=== PATIENT | female | born 1995 | race Caucasian/White ===

== ENCOUNTER 2020-08-01 20:18 | Emergency (ER) | payer OTHER ==
[~2020-08-01] VITALS: Ht 152.4 cm; Wt 61.4 kg
[~2020-08-01 20:18] MED LIST: CLAR1TAB2 PO; DEBR6.5S4 AU; DEPA1TAB3 PO; DEPA500T2 PO; FLAG500T PO; FLON0.054; GEOD40CA13 PO
[2020-08-01] MEDS ORDERED: DOXYCYCLINE HYCLATE 100MG TABLET PO ONE (23:00)
[2020-08-01] MEDS ORDERED: BOOSTRIX/ADACEL VACCINE (DIPHTH/PERTUSS/ACELL/TETANUS) 0.5ML SYR IM ONE (23:00)
[2020-08-01] MEDS ORDERED: DOXY100C37 PO (23:00)
[2020-08-01 23:17] VITALS: BP 142/93
== END 2020-08-01 23:20 | disposition home or self-care (01) ==
LOC: M ED 20:18
DX: S91.332A Puncture wound without foreign body, left foot, initial encounter (principal); W45.0XXA Nail entering through skin, initial encounter; Z88.0 Allergy status to penicillin; Z91.013 Allergy to seafood; Z88.8 Allergy status to other drugs, medicaments and biological substances; Y92.9 Unspecified place or not applicable; Y93.9 Activity, unspecified; Y99.9 Unspecified external cause status

== ENCOUNTER 2020-09-26 22:06 | Emergency (ER) | payer OTHER ==
[~2020-09-26] VITALS: Ht 152.4 cm; Wt 59.8 kg
[~2020-09-26 22:06] MED LIST changes: +DOXY100C37 PO
[2020-09-26 22:42] VITALS: BP 129/77
== END 2020-09-27 01:00 | disposition left against medical advice (07) ==
LOC: M ED 22:06
DX: Z53.21 Procedure and treatment not carried out due to patient leaving prior to being seen by health care provider (principal)

== ENCOUNTER 2020-11-10 07:27 | Emergency (ER) | payer OTHER ==
[~2020-11-10] VITALS: Ht 152.4 cm; Wt 62.3 kg
[~2020-11-10 07:27] MED LIST changes: -DOXY100C37 PO; +DOXY1CAP62 PO
[2020-11-10 08:18] LABS: HEMATOCRIT 40.6 % (36.0-47.0); HEMOGLOBIN 13.6 g/dl (12.0-15.5); MEAN CORPUSCULAR HEMOGLOBIN 32.5 pg (27.0-33.0); MEAN CORPUSCULAR HGB CONC 33.5 g/dl (32.0-36.5); MEAN CORPUSCULAR VOLUME 96.9 fl (80.0-96.0); PLATELET COUNT, AUTOMATED 263 10^3/uL (150-450); RED BLOOD COUNT 4.19 10^6/uL (4.00-5.40)
[2020-11-10 08:40] LABS: AMPHETAMINES LEVEL URINE NEGATIVE (NEGATIVE); BARBITURATES URINE NEGATIVE (NEGATIVE); BENZODIAZEPINES URINE NEGATIVE (NEGATIVE); CANNABINOIDS URINE NEGATIVE (NEGATIVE); COCAINE METABOLITE URINE NEGATIVE (NEGATIVE); METHADONE URINE NEGATIVE (NEGATIVE); OPIATES URINE NEGATIVE (NEGATIVE); PHENCYCLIDINE URINE NEGATIVE (NEGATIVE)
[2020-11-10 08:56] LABS: HCG, SERUM QUALITATIVE NEGATIVE (NEGATIVE)
[2020-11-10 09:09] LABS: ACETAMINOPHEN LEVEL < 2.0 UG/ML (10.0-30.0); ALBUMIN 4.1 GM/DL (3.2-5.2); ALT/SGPT 16 U/L (12-78); BILIRUBIN,DIRECT < 0.1 MG/DL (0.0-0.2); BILIRUBIN,TOTAL 0.2 MG/DL (0.2-1.0); BLOOD UREA NITROGEN 12 MG/DL (7-18); CARBON DIOXIDE LEVEL 21 MEQ/L (21-32); CHLORIDE LEVEL 112 MEQ/L (98-107); ETHYL ALCOHOL (ETHANOL) 0.088 % (0.000-0.010); GLOMERULAR FILTRATION RATE > 60.0 (>60); GLUCOSE, FASTING 100 MG/DL (70-100); POTASSIUM SERUM 3.7 MEQ/L (3.5-5.1); SALICYLATE LEVEL 2.7 MG/DL (5.0-30.0); SODIUM LEVEL 144 MEQ/L (136-145); TOTAL PROTEIN 7.8 GM/DL (6.4-8.2)
[2020-11-10 12:10] VITALS: BP 121/75
== END 2020-11-10 12:11 | disposition home or self-care (01) ==
LOC: M ED 07:27
DX: F10.10 Alcohol abuse, uncomplicated (principal); Z91.5 Personal history of self-harm; F17.200 Nicotine dependence, unspecified, uncomplicated; F12.10 Cannabis abuse, uncomplicated; Z88.0 Allergy status to penicillin; Z88.8 Allergy status to other drugs, medicaments and biological substances; Z91.013 Allergy to seafood

== ENCOUNTER 2021-03-24 18:48 | Emergency (ER) | payer OTHER ==
[~2021-03-24] VITALS: Ht 152.4 cm; Wt 63.4 kg
[~2021-03-24 18:48] MED LIST changes: +DOXY-443 PO; -DOXY1CAP62 PO
[2021-03-24 18:49] VITALS: BP 114/70
--- OUTSIDE RECORDS SUMMARY | 2021-03-24 18:54 | CCD ---
Author Author [facility] Organization [facility] Address Unknown Phone Unavailable Support Name Relationship Address Phone Chace Ame JAUREGUI Next Of Kin [address] [place] [address] SHANIA Mas Erin Next Of Kin [address] [place] [address] CHERYLE AMBRIZ Next Of Kin [address] [facility] [address] [place], [place] [id number] SEAN ROLDAN Next Of Kin [address] [place] [address] Unavailable CHINMAY HOFF Next Of Kin [address] [place], [place] [id number] NO, PER PT ONE Next Of Kin [address] [place] [address] Unavailable Alivia AMBRIZ Next Of Kin [address] [place] [address] [place] [address] SANTOS HOFF Next Of Kin [address] [place] [address] UE Next Of Kin Unknown Unavailable NISA FULLER Next Of Kin [address] [place] [address] ST Next Of Kin Unknown Unavailable TING SHAH Next Of Kin [address] [place] [address] MARKELL (CLASSER) HARRISON Next Of Kin [address] [place] [address] USMAN FINCH Next Of Kin Unknown Unavailable NONE Next Of Kin Unknown Unavailable Re-disclosure Warning The records that you are about to access may contain information from federally-assisted alcohol or drug abuse programs. If such information is present, then the following federally mandated warning applies: This information has been disclosed to you from records protected by federal confidentiality rules (42 CFR part 2). The federal rules prohibit you from making any further disclosure of this information unless further disclosure is expressly permitted by the written consent of the person to whom it pertains or as otherwise permitted by 42 CFR part 2. A general authorization for the release of medical or other information is NOT sufficient for this purpose. The Federal rules restrict any use of the information to criminally investigate or prosecute any alcohol or drug abuse patient.The records that you are about to access may contain highly sensitive health information, the redisclosure of which is protected by Article 27-F of the [facility] Public Health law. If you continue you may have access to information: Regarding HIV / AIDS; Provided by facilities licensed or operated by the [facility] Office of Mental Health; or Provided by the [facility] Office for People With Developmental Disabilities. If such information is present, then the following [facility] mandated warning applies: This information has been disclosed to you from confidential records which are protected by state law. State law prohibits you from making any further disclosure of this information without the specific written consent of the person to whom it pertains, or as otherwise permitted by law. Any unauthorized further disclosure in violation of state law may result in a fine or halfway sentence or both. A general authorization for the release of medical or other information is NOT sufficient authorization for further disc losure. Medications No Information Insurance Providers Payer name Policy type / Coverage type Policy ID Covered alliance party ID Covered alliance party's relationship to garcía Policy García Plan Information DIANNA [id number] Patient [id number] DIANNA [id number] SP [id number] DIANNA MEDICAID MANAGED CARE [id number] SP [id number] DIANNA MEDICAID MANAGED CARE [id number] SP [id number] DIANNA MEDICAID MANAGED CARE [id number] SP [id number] DIANNA CARE [id number] S [id number] SELF PAY UNAVAILABLE SP UNAVAILA BLE MVP MCDHMO [id number] SP [id number] VALUE OPTIONS (MVP) [id number] SP [id number] [facility] O [id number] S [id number] MEDICAID [id number] SP [id number] SELF PAY UNAVAILABLE SP UNAVAILA BLE DIANNA MEDICAID 2 [id number] 1 [id number] MEDICAID [facility] 3 [id number] 1 [id number] S SELF PAY 2 UNAVAILABLE 1 UNAVAILA BLE [facility] MEDICAID [id number] SP [id number] S DIANNA MEDICAID MANAGED CARE [id number] [facility] MEDICAID [id number] SP [id number] S [facility] MEDICAID [id number] SP [id number] S Problems, Conditions, and Diagnoses No Information Surgeries/Procedures No Information Results ID Date Data Source [id number] 02/03/2021 08:41:00 PM EDT [facility] Name Value Range Interpretation Code Description Data Deanne rce(s) Supporting Document(s) SARS coronavirus 2 RNA [Presence] in Res piratory specimen by ROMULO with probe detection Not Detected [facility] This lab was ordered by [facility] and re ported by [facility]. ID Date Data Source [id number] 02/03/2021 04:41:00 PM EDT [facility] Name Value Range Interpretation Code Description Data Deanne rce(s) Supporting Document(s) SARS-CoV-2 NEGATIVE [facility] This lab was ordered by [facility] and reported by [facility]. Procedure Social History No Information
[2021-03-24] MEDS ORDERED: VENTAER INH (19:02)
--- OUTSIDE RECORDS SUMMARY | 2021-03-24 19:40 | CCD ---
Author Author [facility] Organization [facility] Address Unknown Phone Unavailable Support Name Relationship Address Phone Chace Ame JAUREGUI Next Of Kin [address] [place] [address] SHANIA Mas Erin Next Of Kin [address] [place] [address] CHERYLE AMBRIZ Next Of Kin [address] [facility] [address] [place], [place] [phone] SEAN ROLDAN Next Of Kin [address] [place] [address] Unavailable CHINMAY HOFF Next Of Kin [address] [place], [place] [phone] NO, PER PT ONE Next Of Kin [address] [place] [address] Unavailable Alivia AMBRIZ Next Of Kin [address] [place] [address] [place] [address] SANTOS HOFF Next Of Kin [address] [place] [address] UE Next Of Kin Unknown Unavailable NISA FULLER Next Of Kin [address] [place] [address] ST Next Of Kin Unknown Unavailable TING SHAH Next Of Kin [address] [place] [address] MARKELL (ACOUSTICAL CARPENTER) HARRISON Next Of Kin [address] [place] [address] USMAN FINCH Next Of Kin Unknown Unavailable [...] is protected by Article 27-F of the [facility] Public Health law. If you continue you may have access to information: Regarding HIV / AIDS; Provided by facilities licensed or operated by the [facility] Office of Mental Health; or Provided by the [facility] Office for People With Developmental Disabilities. If such information is present, then the following [facility] mandated warning applies: This information has [...] law may result in a fine or fci sentence or both. A general authorization for the release of medical or other information is NOT sufficient authorization for further disc losure. Medications No Information Insurance Providers Payer name Policy type / Coverage type Policy ID Covered democrat ID Covered democrat's relationship to garcía Policy García Plan Information DIANNA [id number] Patient [id number] DIANNA [id number] SP [id number] DIANNA MEDICAID MANAGED CARE [id number] SP [id number] DIANNA MEDICAID MANAGED CARE [id number] SP [id number] DIANNA MEDICAID MANAGED CARE [id number] SP [id number] DIANNA CARE [id number] S [id number] SELF PAY UNAVAILABLE SP UNAVAILA BLE MVP MCDHMO [id number] SP [id number] VALUE OPTIONS (MVP) [id number] SP [id number] [facility] O [id number] S [id number] MEDICAID [id number] SP [id number] SELF PAY UNAVAILABLE SP UNAVAILA BLE DIANNA MEDICAID 2 [id number] 1 [id number] MEDICAID [facility] 3 [id number] S SELF PAY 2 UNAVAILABLE 1 UNAVAILA BLE [facility] MEDICAID [id number] SP [id number] S DIANNA MEDICAID MANAGED CARE [id number] [facility] MEDICAID [id number] SP [id number] S [facility] MEDICAID [id number] SP [id number] S Problems, Conditions, and Diagnoses No Information Surgeries/Procedures No Information Results ID Date Data Source [id number] 02/03/2021 08:41:00 PM EDT [facility] Name Value Range Interpretation Code Description Data Deanne rce(s) Supporting Document(s) SARS coronavirus 2 RNA [Presence] in Res piratory specimen by ROMULO with probe detection Not Detected [facility] This lab was ordered by [facility] and re ported by [facility]. ID Date Data Source [id number] 02/03/2021 04:41:00 PM EDT [facility] Name Value Range Interpretation Code Description Data Deanne rce(s) Supporting Document(s) SARS-CoV-2 NEGATIVE [facility] This lab was ordered by [facility] and reported by [facility] [employer] [facility]. Procedure Social History No Information
[2021-03-24] MEDS ORDERED: ACETAMINOPHEN 325 MG TAB PO ONE (20:10)
[2021-03-24 20:15] LABS: BASO # 0.1 10^3/uL (0.0-0.2); BASO % 0.5 % (0.0-1.0); EOS # 0.6 10^3/uL (0.0-0.5); HEMOGLOBIN 12.6 g/dl (12.0-15.5); LYMPH % 30.9 % (24.0-44.0); MEAN CORPUSCULAR HEMOGLOBIN 32.5 pg (27.0-33.0); MEAN CORPUSCULAR HGB CONC 33.2 g/dl (32.0-36.5); MEAN CORPUSCULAR VOLUME 97.9 fl (80.0-96.0); MONO # 1.1 10^3/uL (0.0-0.8); NEUTROPHILS # 5.1 10^3/uL (1.5-8.5); NEUTROPHILS % 51.3 % (36.0-66.0); PLATELET COUNT, AUTOMATED 252 10^3/uL (150-450); RED BLOOD COUNT 3.88 10^6/uL (4.00-5.40); WHITE BLOOD COUNT 9.8 10^3/uL (4.0-10.0)
== END 2021-03-24 21:16 | disposition home or self-care (01) ==
LOC: M ED 18:48
DX: M54.50 Low back pain, unspecified (principal); R10.9 Unspecified abdominal pain; R56.9 Unspecified convulsions; Z87.448 Personal history of other diseases of urinary system; F17.200 Nicotine dependence, unspecified, uncomplicated; Z88.0 Allergy status to penicillin; Z88.8 Allergy status to other drugs, medicaments and biological substances; Z91.013 Allergy to seafood

== ENCOUNTER 2021-05-02 18:15 | Observation (INO) | payer OTHER ==
[~2021-05-02] VITALS: Ht 152.4 cm; Wt 62.8 kg
[~2021-05-02 18:15] MED LIST changes: +VENTAER INH
[2021-05-02 19:16] LABS: BASO # 0.1 10^3/uL (0.0-0.2); BASO % 0.5 % (0.0-1.0); EOS # 0.2 10^3/uL (0.0-0.5); EOS % 2.5 % (0.0-3.0); HEMATOCRIT 39.7 % (36.0-47.0); HEMOGLOBIN 13.2 g/dl (12.0-15.5); LYMPH % 20.5 % (24.0-44.0); MEAN CORPUSCULAR HEMOGLOBIN 32.8 pg (27.0-33.0); MEAN CORPUSCULAR HGB CONC 33.2 g/dl (32.0-36.5); MEAN CORPUSCULAR VOLUME 98.8 fl (80.0-96.0); MONO % 10.5 % (2.0-8.0); NEUTROPHILS # 6.4 10^3/uL (1.5-8.5); NEUTROPHILS % 65.6 % (36.0-66.0); PLATELET COUNT, AUTOMATED 196 10^3/uL (150-450); RED BLOOD COUNT 4.02 10^6/uL (4.00-5.40); WHITE BLOOD COUNT 9.8 10^3/uL (4.0-10.0)
[2021-05-02 19:40] LABS: ALBUMIN 3.9 GM/DL (3.2-5.2); ALT/SGPT 18 U/L (12-78); BILIRUBIN,DIRECT 0.1 MG/DL (0.0-0.2); BILIRUBIN,TOTAL 0.4 MG/DL (0.2-1.0); BLOOD UREA NITROGEN 14 MG/DL (7-18); CALCIUM LEVEL 9.2 MG/DL (8.5-10.1); CARBON DIOXIDE LEVEL 25 MEQ/L (21-32); CHLORIDE LEVEL 108 MEQ/L (98-107); CREATININE FOR GFR 0.64 MG/DL (0.55-1.30); GLOMERULAR FILTRATION RATE > 60.0 (>60); GLUCOSE, FASTING 83 MG/DL (70-100); LIPASE 38 U/L (73-393); POTASSIUM SERUM 3.8 MEQ/L (3.5-5.1); SODIUM LEVEL 139 MEQ/L (136-145); TOTAL PROTEIN 7.2 GM/DL (6.4-8.2)
[2021-05-02 19:55] LABS: HCG, SERUM QUALITATIVE NEGATIVE (NEGATIVE)
[2021-05-02] MEDS ORDERED: ACETAMINOPHEN TAB 650MG DOSE (2X325MG) PO ONE (22:45)
[2021-05-03] MEDS ORDERED: MORPHINE 4 MG/ML 1ML VIAL/SYRINGE (J2270) IV ONE (03:55)
[2021-05-03] MEDS ORDERED: ISOVUE-370 76% 100ML VIAL As Ordered ONE (04:00)
[2021-05-03] MEDS ORDERED: ERTAPENEM SODIUM 1 GM in NS MINI-BAG PLUS 50 ML IV ONE (04:10)
[2021-05-03] MEDS ORDERED: NS 1,000 ML IV SCH (05:55)
[2021-05-03] MEDS ORDERED: C 50TAB PO (06:11)
[2021-05-03] MEDS ORDERED: PROAAER10 INH (06:11)
[2021-05-03] MEDS ORDERED: BENA25CA4 PO (06:11)
[2021-05-03] MEDS ORDERED: SFHIBU200 PO (06:11)
[2021-05-03] MEDS ORDERED: HOME MED LIST COMPLETE! XX SCH (06:15)
[2021-05-03 06:49] LABS: RSV AMPLIFICATION NEGATIVE (NEGATIVE)
[2021-05-03] MEDS ORDERED: ONDANSETRON 4MG/2ML VIAL IV PRN (07:50)
[2021-05-03] MEDS ORDERED: MORPHINE 2 MG/ML 1ML VIAL (J2270) IV PRN ×2 (07:50)
[2021-05-03] MEDS ORDERED: ALBUTEROL 90 MCG/ACT 8GM HFA INHALER INH PRN (08:05)
[2021-05-03] MEDS: NS 1,000 ML IV SCH ×2 (08:25→15:11)
[2021-05-03] MEDS: CIPROFLOXACIN 400 MG in IV 1 EA IV SCH ×2 (08:38→20:34)
[2021-05-03] MEDS: PANTOPRAZOLE 40MG VIAL (C9113 PER 1) IV SCH (08:39)
[2021-05-03] MEDS: KETOROLAC 30 MG/ML 1ML VIAL IV SCH ×3 (08:39→20:34)
[2021-05-03] MEDS ORDERED: metroNIDAZOLE 500 MG in IV 1 EA IV SCH (10:00)
[2021-05-03 12:00] VITALS: BP 108/57
[2021-05-03 14:00] VITALS: BP 107/57
[2021-05-03] MEDS: metroNIDAZOLE 500 MG in IV 1 EA IV SCH (17:35)
[2021-05-03 22:00] VITALS: BP 104/71
[2021-05-04] MEDS: KETOROLAC 30 MG/ML 1ML VIAL IV SCH ×2 (02:01→07:54)
[2021-05-04] MEDS: NS 1,000 ML IV SCH ×2 (02:01→07:54)
[2021-05-04] MEDS: metroNIDAZOLE 500 MG in IV 1 EA IV SCH (02:02)
[2021-05-04 06:00] VITALS: BP 95/65
[2021-05-04] MEDS ORDERED: METR-265 PO (07:24)
[2021-05-04] MEDS ORDERED: CIPR-249 PO (07:24)
[2021-05-04] MEDS: PANTOPRAZOLE 40MG VIAL (C9113 PER 1) IV SCH (07:53)
[2021-05-04] MEDS: CIPROFLOXACIN 400 MG in IV 1 EA IV SCH (07:54)
== END 2021-05-04 11:00 | disposition home health service (06) ==
LOC: M ED 18:15 → M ED INP 05-03 07:47 → ENRESERV 05-03 11:02 → M MS5PR 05-03 11:30
PROVIDERS: ADMIT Surgery; ATTEND Surgery
DX: K35.80 Unspecified acute appendicitis (principal); N20.0 Calculus of kidney; R50.9 Fever, unspecified; D72.821 Monocytosis (symptomatic); R56.9 Unspecified convulsions; J45.909 Unspecified asthma, uncomplicated; F41.9 Anxiety disorder, unspecified; F32.9 Major depressive disorder, single episode, unspecified; R45.4 Irritability and anger; Z79.899 Other long term (current) drug therapy
CPT/HCPCS: 74177; 80048; 80076; 81001; 83690; 84703; 85025; 87631; 96361; 96365; 96366; 96367; 96375; 96376; 99284; C9113; J0744; J1335; J1885; J2270; J2405; Q9967

== ENCOUNTER 2021-08-03 03:22 | Inpatient (IN) | payer OTHER ==
[~2021-08-03] VITALS: Ht 152.4 cm; Wt 60.8 kg
[~2021-08-03 03:22] MED LIST changes: +BENA25CA4 PO; +C 50TAB PO; +CIPR-249 PO; +METR-265 PO; +PROAAER10 INH; +SFHIBU200 PO
[2021-08-03 03:56] LABS: HEMATOCRIT 41.6 % (36.0-47.0); HEMOGLOBIN 14.1 g/dl (12.0-15.5); MEAN CORPUSCULAR HEMOGLOBIN 32.3 pg (27.0-33.0); MEAN CORPUSCULAR HGB CONC 33.9 g/dl (32.0-36.5); MEAN CORPUSCULAR VOLUME 95.4 fl (80.0-96.0); PLATELET COUNT, AUTOMATED 249 10^3/uL (150-450); RED BLOOD COUNT 4.36 10^6/uL (4.00-5.40); WHITE BLOOD COUNT 8.6 10^3/uL (4.0-10.0)
[2021-08-03 04:24] LABS: HCG, SERUM QUALITATIVE NEGATIVE (NEGATIVE)
[2021-08-03 04:31] LABS: AMPHETAMINES LEVEL URINE NEGATIVE (NEGATIVE); BARBITURATES URINE NEGATIVE (NEGATIVE); BENZODIAZEPINES URINE NEGATIVE (NEGATIVE); CANNABINOIDS URINE NEGATIVE (NEGATIVE); COCAINE METABOLITE URINE NEGATIVE (NEGATIVE); METHADONE URINE NEGATIVE (NEGATIVE); OPIATES URINE NEGATIVE (NEGATIVE); PHENCYCLIDINE URINE NEGATIVE (NEGATIVE)
[2021-08-03 04:35] LABS: ACETAMINOPHEN LEVEL < 2.0 UG/ML (10.0-30.0); ALBUMIN 4.3 GM/DL (3.2-5.2); ALT/SGPT 18 U/L (12-78); BILIRUBIN,DIRECT < 0.1 MG/DL (0.0-0.2); BILIRUBIN,TOTAL 0.2 MG/DL (0.2-1.0); BLOOD UREA NITROGEN 11 MG/DL (7-18); CALCIUM LEVEL 8.8 MG/DL (8.5-10.1); CARBON DIOXIDE LEVEL 24 MEQ/L (21-32); CHLORIDE LEVEL 112 MEQ/L (98-107); CREATININE FOR GFR 0.76 MG/DL (0.55-1.30); ETHYL ALCOHOL (ETHANOL) 0.217 % (0.000-0.010); GLOMERULAR FILTRATION RATE > 60.0 (>60); GLUCOSE, FASTING 103 MG/DL (70-100); POTASSIUM SERUM 3.7 MEQ/L (3.5-5.1); SALICYLATE LEVEL 2.2 MG/DL (5.0-30.0); SODIUM LEVEL 142 MEQ/L (136-145)
[2021-08-03 05:02] LABS: FREE T4 0.89 NG/DL (0.76-1.46)
[2021-08-03 09:28] LABS: RSV AMPLIFICATION NEGATIVE (NEGATIVE)
[2021-08-03] MEDS ORDERED: HOME MED LIST COMPLETE! XX SCH (12:25)
[2021-08-03] MEDS ORDERED: ALBUTEROL 90 MCG/ACT 8GM HFA INHALER INH PRN (15:35)
[2021-08-03] MEDS ORDERED: traZODone 50 MG TAB PO PRN (15:35)
[2021-08-03] MEDS ORDERED: MOM 30ML SUSPENSION UDC PO PRN (15:35)
[2021-08-03] MEDS ORDERED: MAALOX 30 ML SUSP *UDC PO PRN (15:35)
[2021-08-03 17:10] VITALS: BP 135/90
[2021-08-03] MEDS ORDERED: LORazepam 2 MG TAB PO PRN (17:20)
[2021-08-03] MEDS: THIAMINE 100 MG TAB PO SCH (17:31)
[2021-08-03] MEDS: ACETAMINOPHEN TAB 650MG DOSE (2X325MG) PO PRN (21:21)
[2021-08-03 22:00] VITALS: BP 119/65
[2021-08-04 06:00] VITALS: BP 115/64
[2021-08-04 06:48] VITALS: BP 115/64
[2021-08-04 08:30] VITALS: BP 121/73
[2021-08-04] MEDS ORDERED: FOLIC ACID 1 MG TAB PO SCH (09:00)
[2021-08-04] MEDS ORDERED: MULTIVITAMINS/MINERALS THERAP 1 TAB PO SCH (09:00)
[2021-08-04] MEDS: THIAMINE 100 MG TAB PO SCH ×2 (09:32→21:39)
[2021-08-04 16:30] VITALS: BP 124/69
[2021-08-04 16:49] LABS: FREE T4 0.71 NG/DL (0.76-1.46)
[2021-08-04] MEDS: ACETAMINOPHEN TAB 650MG DOSE (2X325MG) PO PRN (23:00)
[2021-08-05 00:30] VITALS: BP 119/67
[2021-08-05 07:00] VITALS: BP 128/62
[2021-08-05 20:58] VITALS: BP 127/61
[2021-08-05] MEDS: ACETAMINOPHEN TAB 650MG DOSE (2X325MG) PO PRN (22:55)
[2021-08-06 06:00] VITALS: BP 108/59
[2021-08-06 08:06] LABS: TOTAL T3 101.3 NG/DL (60.0-181.0)
[2021-08-06 08:08] VITALS: BP 108/59
[2021-08-06] MEDS: ACAMPROSATE CALCIUM 333 MG TABLET (CAMPRAL) PO SCH ×2 (09:00→20:02)
[2021-08-06] MEDS: buPROPion (WELLBUTRIN SR) 100 MG SR TAB PO SCH ×2 (13:16→20:02)
[2021-08-06 16:27] VITALS: BP 111/66
[2021-08-07 06:13] VITALS: BP 110/64
[2021-08-07] MEDS ORDERED: BUPR10TASR PO (07:57)
[2021-08-07] MEDS ORDERED: ACAM0.05 PO (07:57)
[2021-08-07] MEDS: ACAMPROSATE CALCIUM 333 MG TABLET (CAMPRAL) PO SCH (08:06)
[2021-08-07] MEDS: buPROPion (WELLBUTRIN SR) 100 MG SR TAB PO SCH (08:06)
== END 2021-08-07 12:56 | disposition home or self-care (01) | DRG 775 ==
LOC: M ED 03:22 → M ED INP 15:31 → M PSY 17:04
PROVIDERS: ADMIT Psychiatry & Neurology Psychiatry; ATTEND Psychiatry & Neurology Psychiatry
DX: F10.14 Alcohol abuse with alcohol-induced mood disorder (principal); F41.9 Anxiety disorder, unspecified; F60.89 Other specific personality disorders; J45.909 Unspecified asthma, uncomplicated; F10.129 Alcohol abuse with intoxication, unspecified; Z81.1 Family history of alcohol abuse and dependence; Z79.899 Other long term (current) drug therapy; Z88.0 Allergy status to penicillin; Z88.8 Allergy status to other drugs, medicaments and biological substances; Z91.013 Allergy to seafood; Z91.030 Bee allergy status; Z63.0 Problems in relationship with spouse or partner; Z91.51 Personal history of suicidal behavior; F17.200 Nicotine dependence, unspecified, uncomplicated

== ENCOUNTER 2021-12-16 13:31 | Observation (INO) | payer OTHER ==
[~2021-12-16] VITALS: Ht 152.4 cm; Wt 59.1 kg
[~2021-12-16 13:31] MED LIST changes: +ACAM0.05 PO; +BUPR10TASR PO
[2021-12-16 13:51] LABS: BASO % 0.3 % (0.0-1.0); EOS % 0.2 % (0.0-3.0); HEMATOCRIT 41.6 % (36.0-47.0); HEMOGLOBIN 14.2 g/dl (12.0-15.5); LYMPH # 2.1 10^3/uL (1.5-5.0); LYMPH % 14.1 % (24.0-44.0); MEAN CORPUSCULAR HGB CONC 34.1 g/dl (32.0-36.5); MEAN CORPUSCULAR VOLUME 96.7 fl (80.0-96.0); MONO # 0.7 10^3/uL (0.0-0.8); MONO % 4.8 % (2.0-8.0); NEUTROPHILS # 11.8 10^3/uL (1.5-8.5); NEUTROPHILS % 80.1 % (36.0-66.0); PLATELET COUNT, AUTOMATED 283 10^3/uL (150-450); WHITE BLOOD COUNT 14.7 10^3/uL (4.0-10.0)
[2021-12-16 14:28] LABS: ACETAMINOPHEN LEVEL 10.7 UG/ML (10.0-30.0); ALT/SGPT 12 U/L (12-78); BILIRUBIN,DIRECT < 0.1 MG/DL (0.0-0.2); BILIRUBIN,TOTAL 0.3 MG/DL (0.2-1.0); BLOOD UREA NITROGEN 13 MG/DL (7-18); CALCIUM LEVEL 9.2 MG/DL (8.5-10.1); CARBON DIOXIDE LEVEL 21 MEQ/L (21-32); CHLORIDE LEVEL 107 MEQ/L (98-107); CREATININE FOR GFR 0.72 MG/DL (0.55-1.30); ETHYL ALCOHOL (ETHANOL) < 0.003 % (0.000-0.010); GLOMERULAR FILTRATION RATE > 60.0 (>60); GLUCOSE, FASTING 97 MG/DL (70-100); POTASSIUM SERUM 3.7 MEQ/L (3.5-5.1); SALICYLATE LEVEL 20.5 MG/DL (5.0-30.0); SODIUM LEVEL 137 MEQ/L (136-145); TOTAL PROTEIN 7.7 GM/DL (6.4-8.2)
[2021-12-16 14:31] LABS: AMPHETAMINES LEVEL URINE NEGATIVE (NEGATIVE); BARBITURATES URINE NEGATIVE (NEGATIVE); BENZODIAZEPINES URINE NEGATIVE (NEGATIVE); CANNABINOIDS URINE NEGATIVE (NEGATIVE); COCAINE METABOLITE URINE NEGATIVE (NEGATIVE); METHADONE URINE NEGATIVE (NEGATIVE); OPIATES URINE NEGATIVE (NEGATIVE); PHENCYCLIDINE URINE NEGATIVE (NEGATIVE)
[2021-12-16 14:37] LABS: RSV AMPLIFICATION NEGATIVE (NEGATIVE)
[2021-12-16] MEDS ORDERED: GI COCKTAIL 50ML BTL(HYOSCYAMINE/MAALOX/LIDOCAINE VISCOUS)(1:3:1) PO ONE (15:10)
[2021-12-16 16:05] LABS: VENOUS BASE EXCESS -3.9 (-2.0-2.0); VENOUS HCO3 19.1 MEQ/L (23.0-27.0); VENOUS O2 SATURATION 99.5 % (60.0-80.0); VENOUS PARTIAL PRESSURE CO2 29.7 mmHg (38.0-50.0); VENOUS PARTIAL PRESSURE O2 189.5 mmHg (30.0-50.0); VENOUS PH 7.427 UNITS (7.330-7.430); VENOUS STANDARD HCO3 21.3 MEQ/L
[2021-12-16 16:41] LABS: ACETAMINOPHEN LEVEL 5.8 UG/ML (10.0-30.0); BLOOD UREA NITROGEN 11 MG/DL (7-18); CALCIUM LEVEL 8.9 MG/DL (8.5-10.1); CARBON DIOXIDE LEVEL 21 MEQ/L (21-32); CHLORIDE LEVEL 107 MEQ/L (98-107); CREATININE FOR GFR 0.69 MG/DL (0.55-1.30); GLOMERULAR FILTRATION RATE > 60.0 (>60); GLUCOSE, FASTING 100 MG/DL (70-100); POTASSIUM SERUM 3.7 MEQ/L (3.5-5.1); SALICYLATE LEVEL 18.4 MG/DL (5.0-30.0); SODIUM LEVEL 136 MEQ/L (136-145)
[2021-12-16] MEDS ORDERED: HOME MED LIST COMPLETE! XX SCH (17:30)
[2021-12-16] MEDS ORDERED: ALBUTEROL 90 MCG/ACT 8GM HFA INHALER INH PRN (17:50)
[2021-12-17 07:59] LABS: BASO # 0.1 10^3/uL (0.0-0.2); BASO % 0.5 % (0.0-1.0); EOS # 0.2 10^3/uL (0.0-0.5); HEMATOCRIT 40.3 % (36.0-47.0); HEMOGLOBIN 13.5 g/dl (12.0-15.5); LYMPH # 3.5 10^3/uL (1.5-5.0); LYMPH % 34.5 % (24.0-44.0); MEAN CORPUSCULAR HEMOGLOBIN 32.8 pg (27.0-33.0); MEAN CORPUSCULAR HGB CONC 33.5 g/dl (32.0-36.5); MEAN CORPUSCULAR VOLUME 97.8 fl (80.0-96.0); MONO # 0.6 10^3/uL (0.0-0.8); MONO % 6.3 % (2.0-8.0); NEUTROPHILS # 5.7 10^3/uL (1.5-8.5); NEUTROPHILS % 56.5 % (36.0-66.0); PLATELET COUNT, AUTOMATED 234 10^3/uL (150-450); RED BLOOD COUNT 4.12 10^6/uL (4.00-5.40); WHITE BLOOD COUNT 10.1 10^3/uL (4.0-10.0)
[2021-12-17 08:33] LABS: ALBUMIN 3.7 GM/DL (3.2-5.2); ALT/SGPT 12 U/L (12-78); BILIRUBIN,TOTAL 0.5 MG/DL (0.2-1.0); BLOOD UREA NITROGEN 15 MG/DL (7-18); CALCIUM LEVEL 9.1 MG/DL (8.5-10.1); CARBON DIOXIDE LEVEL 25 MEQ/L (21-32); CHLORIDE LEVEL 105 MEQ/L (98-107); GLOMERULAR FILTRATION RATE > 60.0 (>60); GLUCOSE, FASTING 81 MG/DL (70-100); MAGNESIUM LEVEL 1.9 MG/DL (1.8-2.4); POTASSIUM SERUM 3.7 MEQ/L (3.5-5.1); SODIUM LEVEL 137 MEQ/L (136-145); TOTAL PROTEIN 7.1 GM/DL (6.4-8.2)
[2021-12-19 19:58] VITALS: BP 115/79
[2021-12-19] MEDS ORDERED: buPROPion (WELLBUTRIN SR) 100 MG SR TAB PO SCH (21:00)
[2021-12-19] MEDS ORDERED: ACAMPROSATE CALCIUM 333 MG TABLET (CAMPRAL) PO SCH ×2 (21:00)
[2021-12-19] MEDS ORDERED: ACAM0.05 PO (21:46)
[2021-12-19] MEDS ORDERED: BUPR10TASR PO (21:46)
== END 2021-12-19 22:25 | disposition home or self-care (01) ==
LOC: EDBD 13:31 → M ED 13:31 → M ED INP 17:48 → ENRESERV 12-19 08:26
PROVIDERS: ADMIT Family Medicine; ATTEND Family Medicine
DX: T39.1X2A Poisoning by 4-Aminophenol derivatives, intentional self-harm, initial encounter (principal); T39.012A Poisoning by aspirin, intentional self-harm, initial encounter; T51.0X2A Toxic effect of ethanol, intentional self-harm, initial encounter; Z91.51 Personal history of suicidal behavior; F60.89 Other specific personality disorders; F32.A Depression, unspecified; F41.9 Anxiety disorder, unspecified; Z87.74 Personal history of (corrected) congenital malformations of heart and circulatory system; Z72.89 Other problems related to lifestyle; F17.210 Nicotine dependence, cigarettes, uncomplicated; Z91.013 Allergy to seafood; Z88.0 Allergy status to penicillin; Z88.8 Allergy status to other drugs, medicaments and biological substances; Z79.899 Other long term (current) drug therapy

== ENCOUNTER → 2021-12-21 | Outpatient (CLI) | payer OTHER | LOC: M OUTALCOH 07:58 | PROVIDERS: ATTEND Psychiatry & Neurology Psychiatry | DX: Z02.9 Encounter for administrative examinations, unspecified (principal) ==

== ENCOUNTER 2022-03-23 15:04 | Emergency (ER) | payer OTHER ==
[~2022-03-23] VITALS: Ht 152.4 cm; Wt 56.9 kg
[2022-03-23] MEDS ORDERED: LIDOCAINE 5% (LIDODERM) PATCH TD ONE (17:00)
[2022-03-23] MEDS ORDERED: ACETAMINOPHEN 500 MG TAB PO ONE (17:00)
[2022-03-23 18:13] VITALS: BP 116/62
== END 2022-03-23 18:15 | disposition home or self-care (01) ==
LOC: M ED 15:04
DX: M54.50 Low back pain, unspecified (principal); F41.9 Anxiety disorder, unspecified; F31.9 Bipolar disorder, unspecified; F32.A Depression, unspecified; J45.909 Unspecified asthma, uncomplicated; F17.200 Nicotine dependence, unspecified, uncomplicated; Z79.899 Other long term (current) drug therapy; Z88.0 Allergy status to penicillin; Z91.013 Allergy to seafood; Z88.8 Allergy status to other drugs, medicaments and biological substances; Z86.69 Personal history of other diseases of the nervous system and sense organs; Z98.890 Other specified postprocedural states; Z86.19 Personal history of other infectious and parasitic diseases

== ENCOUNTER 2022-04-10 03:34 | Inpatient (IN) | payer OTHER ==
[~2022-04-10] VITALS: Ht 152.4 cm; Wt 56.8 kg
[2022-04-10] MEDS ORDERED: CHARCOAL ACTIVATED LIQUID 25 GM/120 ML BTL PO ONE (03:50)
[2022-04-10 05:05] LABS: BASO # 0.1 10^3/uL (0.0-0.2); BASO % 0.7 % (0.0-1.0); EOS # 0.3 10^3/uL (0.0-0.5); EOS % 4.6 % (0.0-3.0); HEMATOCRIT 42.1 % (36.0-47.0); LYMPH # 2.5 10^3/uL (1.5-5.0); LYMPH % 37.7 % (24.0-44.0); MEAN CORPUSCULAR HEMOGLOBIN 32.3 pg (27.0-33.0); MEAN CORPUSCULAR HGB CONC 33.3 g/dl (32.0-36.5); MONO # 0.5 10^3/uL (0.0-0.8); MONO % 6.9 % (2.0-8.0); NEUTROPHILS # 3.3 10^3/uL (1.5-8.5); PLATELET COUNT, AUTOMATED 237 10^3/uL (150-450); RED BLOOD COUNT 4.34 10^6/uL (4.00-5.40); WHITE BLOOD COUNT 6.7 10^3/uL (4.0-10.0)
[2022-04-10 05:23] LABS: HCG, SERUM QUALITATIVE NEGATIVE (NEGATIVE)
[2022-04-10 05:27] LABS: CHLORIDE LEVEL 112 MMOL/L (98-107); SODIUM LEVEL 145 MMOL/L (136-145)
[2022-04-10 05:28] LABS: AMPHETAMINES LEVEL URINE NEGATIVE (NEGATIVE); BARBITURATES URINE NEGATIVE (NEGATIVE); BENZODIAZEPINES URINE NEGATIVE (NEGATIVE); CANNABINOIDS URINE NEGATIVE (NEGATIVE); CARBON DIOXIDE LEVEL 22 MMOL/L (20-31); COCAINE METABOLITE URINE NEGATIVE (NEGATIVE); METHADONE URINE NEGATIVE (NEGATIVE); OPIATES URINE NEGATIVE (NEGATIVE); PHENCYCLIDINE URINE NEGATIVE (NEGATIVE)
[2022-04-10 05:29] LABS: ALBUMIN 3.8 G/DL (3.2-5.2)
[2022-04-10 05:33] LABS: BLOOD UREA NITROGEN 8 MG/DL (9-23); CALCIUM LEVEL 7.6 MG/DL (8.5-10.1); ETHYL ALCOHOL (ETHANOL) 0.086 % (0.000-0.010); GLUCOSE, FASTING 107 MG/DL (60-100)
[2022-04-10 05:34] LABS: ALKALINE PHOSPHATASE 43 U/L (46-116)
[2022-04-10 05:35] LABS: BILIRUBIN,DIRECT < 0.1 MG/DL (<0.4); BILIRUBIN,TOTAL 0.2 MG/DL (0.3-1.2); CREATININE FOR GFR 0.49 MG/DL (0.55-1.30); GLOMERULAR FILTRATION RATE > 60.0 (>60); TOTAL PROTEIN 6.4 G/DL (5.7-8.2)
[2022-04-10 05:36] LABS: AST/SGOT 16 U/L (<34)
[2022-04-10 05:39] LABS: ACETAMINOPHEN LEVEL 17.7 UG/ML (10.0-20.0); ALT/SGPT < 9 U/L (7.0-40); CPK CREATINE PHOSPHOKINASE 99 U/L (34-145); POTASSIUM SERUM 3.3 MMOL/L (3.5-5.1); SALICYLATE LEVEL < 3.0 MG/DL (<30); THYROID STIMULATING HORMONE 11.677 uIU/ML (0.55-4.78)
[2022-04-10] MEDS ORDERED: POTASSIUM CHLORIDE 10MEQ SR TABLET PO ONE (05:50)
[2022-04-10 07:38] LABS: RSV AMPLIFICATION NEGATIVE (NEGATIVE)
[2022-04-10] MEDS ORDERED: ONDANSETRON 4MG ORAL DISINTEGRATING TAB PO ONE ×2 (08:25→10:05)
[2022-04-10] MEDS: MULTIVITAMINS/MINERALS THERAP 1 TAB PO SCH (09:00)
[2022-04-10] MEDS: NICOTINE 21MG/24HR 1 EA TRANSDERMAL TD SCH (09:00)
[2022-04-10] MEDS: FOLIC ACID 1MG TAB PO SCH (09:00)
[2022-04-10] MEDS: THIAMINE 100 MG TAB PO SCH ×2 (09:00→21:00)
[2022-04-10 10:45] LABS: BASO # 0.1 10^3/uL (0.0-0.2); BASO % 0.8 % (0.0-1.0); EOS # 0.2 10^3/uL (0.0-0.5); EOS % 2.1 % (0.0-3.0); HEMATOCRIT 40.6 % (36.0-47.0); HEMOGLOBIN 13.8 g/dl (12.0-15.5); LYMPH # 2.6 10^3/uL (1.5-5.0); MEAN CORPUSCULAR HEMOGLOBIN 33.3 pg (27.0-33.0); MEAN CORPUSCULAR VOLUME 97.8 fl (80.0-96.0); MONO # 0.5 10^3/uL (0.0-0.8); MONO % 6.4 % (2.0-8.0); NEUTROPHILS # 3.9 10^3/uL (1.5-8.5); NEUTROPHILS % 54.3 % (36.0-66.0); PLATELET COUNT, AUTOMATED 242 10^3/uL (150-450); RED BLOOD COUNT 4.15 10^6/uL (4.00-5.40); WHITE BLOOD COUNT 7.2 10^3/uL (4.0-10.0)
[2022-04-10 11:08] LABS: BILIRUBIN,DIRECT < 0.1 MG/DL (<0.4)
[2022-04-10 11:26] LABS: ACETAMINOPHEN LEVEL 25.1 UG/ML (10.0-20.0); ALBUMIN 4.3 G/DL (3.2-5.2); ALKALINE PHOSPHATASE 46 U/L (46-116); ALT/SGPT 22 U/L (7.0-40); AST/SGOT 27 U/L (<34); BILIRUBIN,TOTAL 0.2 MG/DL (0.3-1.2); BLOOD UREA NITROGEN 10 MG/DL (9-23); CARBON DIOXIDE LEVEL 23 MMOL/L (20-31); CHLORIDE LEVEL 108 MMOL/L (98-107); GLOMERULAR FILTRATION RATE > 60.0 (>60); GLUCOSE, FASTING 187 MG/DL (60-100); POTASSIUM SERUM 3.8 MMOL/L (3.5-5.1); SODIUM LEVEL 141 MMOL/L (136-145); TOTAL PROTEIN 7.2 G/DL (5.7-8.2)
[2022-04-10] MEDS ORDERED: ACAM0.05 PO (11:59)
[2022-04-10] MEDS ORDERED: BUPR1TAB52 PO (11:59)
[2022-04-10] MEDS ORDERED: HOME MED LIST COMPLETE! XX SCH (12:00)
[2022-04-10] MEDS ORDERED: metroNIDAZOLE (FLAGYL) 500MG TABLET PO ONE (14:10)
[2022-04-10] MEDS ORDERED: MOM 30ML SUSPENSION UDC PO PRN (14:50)
[2022-04-10] MEDS ORDERED: MAALOX 30 ML SUSP *UDC PO PRN (14:50)
[2022-04-10] MEDS ORDERED: LORazepam 2 MG TAB PO PRN (14:50)
[2022-04-10] MEDS ORDERED: IBUPROFEN 400MG TAB PO PRN (14:50)
[2022-04-10 17:58] VITALS: BP 127/72
[2022-04-10 17:59] VITALS: BP 127/72
[2022-04-10] MEDS: ONDANSETRON 4MG ORAL DISINTEGRATING TAB PO PRN (21:02)
[2022-04-11 06:34] VITALS: BP_SYST 127; BP_SYST 130; BP_DIAS 71; BP_DIAS 72
[2022-04-11 08:28] VITALS: BP 130/71
[2022-04-11] MEDS: ONDANSETRON 4MG ORAL DISINTEGRATING TAB PO PRN (08:41)
[2022-04-11] MEDS: NICOTINE 21MG/24HR 1 EA TRANSDERMAL TD SCH (08:48)
[2022-04-11] MEDS: THIAMINE 100 MG TAB PO SCH ×2 (08:48→21:00)
[2022-04-11] MEDS: FOLIC ACID 1MG TAB PO SCH (08:48)
[2022-04-11] MEDS: MULTIVITAMINS/MINERALS THERAP 1 TAB PO SCH (08:48)
[2022-04-11] MEDS ORDERED: buPROPion 100 MG TAB PO SCH (09:00)
[2022-04-11] MEDS: buPROPion 100 MG TAB PO SCH (09:00)
[2022-04-11 13:45] LABS: CHOLESTEROL RISK RATIO 2.39 (<5); HDL CHOLESTEROL 55.6 MG/DL (>40); LDL CHOLESTEROL 71.8 MG/DL (<100)
[2022-04-11 13:50] LABS: HEMOGLOBIN A1c 4.9 % (4.0-6.0)
[2022-04-11] MEDS ORDERED: metroNIDAZOLE (FLAGYL) 500MG TABLET PO ONE (15:10)
[2022-04-11 16:52] VITALS: BP 113/79
[2022-04-11 18:13] VITALS: BP 113/79
[2022-04-12] MEDS: ONDANSETRON 4MG ORAL DISINTEGRATING TAB PO PRN ×2 (06:08→15:58)
[2022-04-12 06:26] VITALS: BP 122/73
[2022-04-12 08:00] VITALS: BP 122/73
[2022-04-12] MEDS: buPROPion 100 MG TAB PO SCH (09:00)
[2022-04-12] MEDS: FOLIC ACID 1MG TAB PO SCH (09:00)
[2022-04-12] MEDS: THIAMINE 100 MG TAB PO SCH ×2 (09:00→20:19)
[2022-04-12] MEDS: MULTIVITAMINS/MINERALS THERAP 1 TAB PO SCH (09:00)
[2022-04-12] MEDS: NICOTINE 21MG/24HR 1 EA TRANSDERMAL TD SCH (09:00)
[2022-04-12] MEDS: LEVOTHYROXINE 50MCG TABLET (0.05MG) PO SCH (10:52)
[2022-04-12 18:07] VITALS: BP 124/70
[2022-04-12] MEDS: traZODone 50 MG TAB PO PRN (21:29)
[2022-04-13] MEDS: LEVOTHYROXINE 50MCG TABLET (0.05MG) PO SCH (05:51)
[2022-04-13] MEDS: PILL CUTTER 1 EACH XX PRN (08:39)
[2022-04-13] MEDS: buPROPion 100 MG TAB PO SCH (08:40)
[2022-04-13] MEDS: FOLIC ACID 1MG TAB PO SCH (08:41)
[2022-04-13] MEDS: MULTIVITAMINS/MINERALS THERAP 1 TAB PO SCH (08:41)
[2022-04-13] MEDS: NICOTINE 21MG/24HR 1 EA TRANSDERMAL TD SCH (08:41)
[2022-04-13 18:13] VITALS: BP 118/74
[2022-04-13] MEDS: LIDOCAINE 5% (LIDODERM) PATCH TD SCH (22:40)
[2022-04-13] MEDS: traZODone 50 MG TAB PO PRN (22:40)
[2022-04-14] MEDS: LEVOTHYROXINE 50MCG TABLET (0.05MG) PO SCH (05:52)
[2022-04-14 06:16] VITALS: BP 110/56
[2022-04-14] MEDS: MULTIVITAMINS/MINERALS THERAP 1 TAB PO SCH (08:08)
[2022-04-14] MEDS: buPROPion 100 MG TAB PO SCH (08:08)
[2022-04-14] MEDS: FOLIC ACID 1MG TAB PO SCH (08:08)
[2022-04-14] MEDS: PILL CUTTER 1 EACH XX PRN (08:08)
[2022-04-14] MEDS: NICOTINE 21MG/24HR 1 EA TRANSDERMAL TD SCH (08:09)
[2022-04-14 18:00] VITALS: BP 129/55
[2022-04-14] MEDS: traZODone 50 MG TAB PO PRN (21:33)
[2022-04-14] MEDS: LIDOCAINE 5% (LIDODERM) PATCH TD SCH (21:34)
[2022-04-15] MEDS: LEVOTHYROXINE 50MCG TABLET (0.05MG) PO SCH (06:16)
[2022-04-15 06:33] VITALS: BP 111/55
[2022-04-15] MEDS: NICOTINE 21MG/24HR 1 EA TRANSDERMAL TD SCH (08:17)
[2022-04-15] MEDS: buPROPion 100 MG TAB PO SCH (08:19)
[2022-04-15] MEDS: PILL CUTTER 1 EACH XX PRN (08:19)
[2022-04-15] MEDS: FOLIC ACID 1MG TAB PO SCH (08:19)
[2022-04-15] MEDS: MULTIVITAMINS/MINERALS THERAP 1 TAB PO SCH (08:19)
[2022-04-15] MEDS ORDERED: LEVO50TA5 PO (09:29)
[2022-04-15] MEDS ORDERED: BUPR-69 PO (09:29)
[2022-04-15] MEDS ORDERED: VITMTA PO (09:29)
== END 2022-04-15 13:04 | disposition home or self-care (01) | DRG 754 ==
LOC: M ED 03:34 → M ED INP 14:49 → M PSY 17:28
PROVIDERS: ADMIT Psychiatry & Neurology Psychiatry; ATTEND Psychiatry & Neurology Psychiatry
DX: F32.A Depression, unspecified (principal); G40.909 Epilepsy, unspecified, not intractable, without status epilepticus; F10.14 Alcohol abuse with alcohol-induced mood disorder; T39.312A Poisoning by propionic acid derivatives, intentional self-harm, initial encounter; T39.1X2A Poisoning by 4-Aminophenol derivatives, intentional self-harm, initial encounter; F10.129 Alcohol abuse with intoxication, unspecified; E02 Subclinical iodine-deficiency hypothyroidism; F17.200 Nicotine dependence, unspecified, uncomplicated; F41.9 Anxiety disorder, unspecified; J45.909 Unspecified asthma, uncomplicated; Z59.9 Problem related to housing and economic circumstances, unspecified; Z79.899 Other long term (current) drug therapy; Z88.0 Allergy status to penicillin; Z88.8 Allergy status to other drugs, medicaments and biological substances; Z91.030 Bee allergy status; Z87.74 Personal history of (corrected) congenital malformations of heart and circulatory system; Z63.0 Problems in relationship with spouse or partner

== ENCOUNTER 2022-06-22 17:48 | Emergency (ER) | payer OTHER ==
[~2022-06-22] VITALS: Ht 152.4 cm; Wt 56.0 kg
[~2022-06-22 17:48] MED LIST changes: +BUPR-69 PO; +BUPR1TAB52 PO; +LEVO50TA5 PO; +VITMTA PO
[2022-06-22 17:49] VITALS: BP 121/73
[2022-06-22] MEDS ORDERED: IBUP-1114 PO (18:04)
[2022-06-22 21:51] LABS: BASO # 0.1 10^3/uL (0.0-0.2); BASO % 0.5 % (0.0-1.0); EOS # 0.3 10^3/uL (0.0-0.5); EOS % 3.1 % (0.0-3.0); HEMATOCRIT 39.4 % (36.0-47.0); HEMOGLOBIN 13.2 g/dl (12.0-15.5); LYMPH # 2.9 10^3/uL (1.5-5.0); LYMPH % 28.8 % (24.0-44.0); MEAN CORPUSCULAR HEMOGLOBIN 32.7 pg (27.0-33.0); MEAN CORPUSCULAR HGB CONC 33.5 g/dl (32.0-36.5); MEAN CORPUSCULAR VOLUME 97.5 fl (80.0-96.0); MONO # 0.9 10^3/uL (0.0-0.8); MONO % 9.3 % (2.0-8.0); NEUTROPHILS # 5.8 10^3/uL (1.5-8.5); PLATELET COUNT, AUTOMATED 213 10^3/uL (150-450); RED BLOOD COUNT 4.04 10^6/uL (4.00-5.40)
[2022-06-22 21:58] LABS: ERYTHROCYTE SEDIMENTATION RATE 30 mm/hr (0-20)
[2022-06-22] MEDS ORDERED: ONDANSETRON 4MG 2ML VIAL IV ONE (22:00)
[2022-06-22] MEDS ORDERED: ACETAMINOPHEN TAB 650MG DOSE (2X325MG) PO ONE (22:00)
[2022-06-22 22:19] LABS: BLOOD UREA NITROGEN 13 MG/DL (9-23); CALCIUM LEVEL 9.1 MG/DL (8.5-10.1); CARBON DIOXIDE LEVEL 24 MMOL/L (20-31); CHLORIDE LEVEL 104 MMOL/L (98-107); CREATININE FOR GFR 0.58 MG/DL (0.55-1.30); GLOMERULAR FILTRATION RATE > 60.0 (>60); GLUCOSE, FASTING 78 MG/DL (60-100); POTASSIUM SERUM 3.8 MMOL/L (3.5-5.1); SODIUM LEVEL 137 MMOL/L (136-145)
[2022-06-22] MEDS ORDERED: KETOROLAC 30 MG/ML 1ML VIAL IV ONE (23:00)
[2022-06-22] MEDS ORDERED: KETO10TAB PO (23:26)
[2022-06-22] MEDS ORDERED: ONDA4TAB6 PO (23:26)
== END 2022-06-22 23:48 | disposition home or self-care (01) ==
LOC: M ED 17:48
DX: G93.89 Other specified disorders of brain (principal); R51.9 Headache, unspecified; Z88.0 Allergy status to penicillin; Z88.8 Allergy status to other drugs, medicaments and biological substances; Z91.013 Allergy to seafood
CPT/HCPCS: 70450; 80048; 85025; 85652; 96374; 96375; 99284; J1885; J2405

== ENCOUNTER 2022-11-02 23:40 | Emergency (ER) | payer OTHER ==
[~2022-11-02] VITALS: Ht 154.9 cm; Wt 58.3 kg
[~2022-11-02 23:40] MED LIST changes: +IBUP-1114 PO; +KETO10TAB PO; +ONDA4TAB6 PO
[2022-11-03 00:57] LABS: BASO # 0.1 10^3/uL (0.0-0.2); BASO % 0.7 % (0.0-1.0); EOS # 0.5 10^3/uL (0.0-0.5); EOS % 4.9 % (0.0-3.0); HEMATOCRIT 43.1 % (36.0-47.0); HEMOGLOBIN 14.5 g/dl (12.0-15.5); LYMPH % 30.2 % (24.0-44.0); MEAN CORPUSCULAR HEMOGLOBIN 32.6 pg (27.0-33.0); MEAN CORPUSCULAR HGB CONC 33.6 g/dl (32.0-36.5); MEAN CORPUSCULAR VOLUME 96.9 fl (80.0-96.0); MONO # 0.8 10^3/uL (0.0-0.8); MONO % 8.5 % (2.0-8.0); NEUTROPHILS # 5.4 10^3/uL (1.5-8.5); NEUTROPHILS % 55.3 % (36.0-66.0); PLATELET COUNT, AUTOMATED 212 10^3/uL (150-450); RED BLOOD COUNT 4.45 10^6/uL (4.00-5.40); WHITE BLOOD COUNT 9.8 10^3/uL (4.0-10.0)
[2022-11-03] MEDS ORDERED: KETOROLAC 30 MG/ML 1ML VIAL IV ONE (01:25)
[2022-11-03 01:29] LABS: BLOOD UREA NITROGEN 15 MG/DL (9-23); CALCIUM LEVEL 10.2 MG/DL (8.5-10.1); CARBON DIOXIDE LEVEL 29 MMOL/L (20-31); CHLORIDE LEVEL 107 MMOL/L (98-107); CK-MB VALUE MASS < 1.0 NG/ML (<3.6); CREATININE FOR GFR 0.87 MG/DL (0.55-1.30); GLOMERULAR FILTRATION RATE > 60.0 (>60); GLUCOSE, FASTING 84 MG/DL (60-100); POTASSIUM SERUM 4.2 MMOL/L (3.5-5.1); SODIUM LEVEL 139 MMOL/L (136-145)
[2022-11-03 01:34] LABS: CPK CREATINE PHOSPHOKINASE 80 U/L (34-145); MB/CK RELATIVE INDEX 1.25 (< OR =4)
[2022-11-03 01:36] LABS: HCG, SERUM QUALITATIVE NEGATIVE (NEGATIVE)
[2022-11-03 02:22] LABS: CK-MB VALUE MASS < 1.0 NG/ML (<3.6)
[2022-11-03 02:23] LABS: CPK CREATINE PHOSPHOKINASE 77 U/L (34-145); MB/CK RELATIVE INDEX 1.29 (< OR =4)
[2022-11-03 03:34] VITALS: BP 119/64; TEMP 97.7; O2SAT 99
[2022-11-03] MEDS ORDERED: KETO10TAB PO (03:37)
== END 2022-11-03 03:50 | disposition home or self-care (01) ==
LOC: M ED 23:40
DX: R07.9 Chest pain, unspecified (principal); F17.200 Nicotine dependence, unspecified, uncomplicated; J45.909 Unspecified asthma, uncomplicated; F31.9 Bipolar disorder, unspecified; Z88.0 Allergy status to penicillin; Z88.8 Allergy status to other drugs, medicaments and biological substances; Z91.013 Allergy to seafood; Z79.899 Other long term (current) drug therapy
CPT/HCPCS: 71045; 80048; 82550; 82553; 84703; 85025; 85379; 93005; 93041; 94760; 96374; 99284; J1885

== ENCOUNTER 2022-12-31 19:00 | Emergency (ER) | payer OTHER, SELFPAY ==
[~2022-12-31] VITALS: Ht 152.4 cm; Wt 57.4 kg
[2023-01-01] MEDS ORDERED: ONDANSETRON 4MG 2ML VIAL IV ONE (06:55)
[2023-01-01] MEDS ORDERED: KETOROLAC 30 MG/ML 1ML VIAL IV ONE (06:55)
[2023-01-01 08:41] LABS: BASO # 0.1 10^3/uL (0.0-0.2); BASO % 0.7 % (0.0-1.0); EOS # 0.6 10^3/uL (0.0-0.5); EOS % 7.7 % (0.0-3.0); HEMATOCRIT 43.7 % (36.0-47.0); HEMOGLOBIN 14.8 g/dl (12.0-15.5); LYMPH # 2.8 10^3/uL (1.5-5.0); LYMPH % 35.1 % (24.0-44.0); MEAN CORPUSCULAR HEMOGLOBIN 32.6 pg (27.0-33.0); MEAN CORPUSCULAR HGB CONC 33.9 g/dl (32.0-36.5); MEAN CORPUSCULAR VOLUME 96.3 fl (80.0-96.0); MONO # 0.7 10^3/uL (0.0-0.8); MONO % 8.5 % (2.0-8.0); NEUTROPHILS # 3.9 10^3/uL (1.5-8.5); NEUTROPHILS % 47.8 % (36.0-66.0); PLATELET COUNT, AUTOMATED 218 10^3/uL (150-450); RED BLOOD COUNT 4.54 10^6/uL (4.00-5.40); WHITE BLOOD COUNT 8.1 10^3/uL (4.0-10.0)
[2023-01-01 09:29] LABS: ERYTHROCYTE SEDIMENTATION RATE 3 mm/hr (0-20)
[2023-01-01 10:05] LABS: BLOOD UREA NITROGEN 18 MG/DL (9-23); C REACTIVE PROTEIN QUANTITATIV < 0.40 MG/DL (<1.0); CARBON DIOXIDE LEVEL 24 MMOL/L (20-31); CHLORIDE LEVEL 107 MMOL/L (98-107); CREATININE FOR GFR 0.74 MG/DL (0.55-1.30); GLOMERULAR FILTRATION RATE > 60.0 (>60); GLUCOSE, FASTING 80 MG/DL (60-100); MAGNESIUM LEVEL 1.7 MG/DL (1.8-2.4); POTASSIUM SERUM 3.8 MMOL/L (3.5-5.1); SODIUM LEVEL 138 MMOL/L (136-145)
[2023-01-01 10:07] LABS: FREE T4 0.79 NG/DL (0.89-1.76)
[2023-01-01] MEDS ORDERED: MAGNESIUM OXIDE 400MG TAB (MAG-OX) PO ONE (10:10)
[2023-01-01 10:34] VITALS: BP 103/53; TEMP 98.6; O2SAT 100
== END 2023-01-01 11:00 | disposition home or self-care (01) ==
LOC: M ED 19:00
DX: E83.42 Hypomagnesemia (principal); E03.9 Hypothyroidism, unspecified; R51.9 Headache, unspecified; J45.909 Unspecified asthma, uncomplicated; G40.909 Epilepsy, unspecified, not intractable, without status epilepticus; F41.9 Anxiety disorder, unspecified; F31.9 Bipolar disorder, unspecified; F17.200 Nicotine dependence, unspecified, uncomplicated; F12.10 Cannabis abuse, uncomplicated; Z88.0 Allergy status to penicillin; Z88.8 Allergy status to other drugs, medicaments and biological substances; Z91.013 Allergy to seafood
CPT/HCPCS: 70450; 80048; 83735; 84439; 84443; 84702; 85025; 85652; 86140; 96374; 96375; 99284; J1885; J2405

== ENCOUNTER 2023-04-14 16:30 | Inpatient (IN) | payer SELFPAY ==
[~2023-04-14] VITALS: Ht 152.4 cm; Wt 56.5 kg
[2023-04-14] MEDS ORDERED: ONDANSETRON 4MG 2ML VIAL IV ONE (17:05)
[2023-04-14] MEDS ORDERED: NS 1,000 ML IV ONE (17:05)
[2023-04-14 17:25] LABS: BASO # 0.1 10^3/uL (0.0-0.2); BASO % 0.8 % (0.0-1.0); EOS # 0.1 10^3/uL (0.0-0.5); EOS % 1.7 % (0.0-3.0); HEMATOCRIT 38.7 % (36.0-47.0); HEMOGLOBIN 13.3 g/dl (12.0-15.5); LYMPH # 1.4 10^3/uL (1.5-5.0); LYMPH % 20.1 % (24.0-44.0); MEAN CORPUSCULAR HEMOGLOBIN 32.9 pg (27.0-33.0); MEAN CORPUSCULAR HGB CONC 34.4 g/dl (32.0-36.5); MEAN CORPUSCULAR VOLUME 95.8 fl (80.0-96.0); MONO # 0.4 10^3/uL (0.0-0.8); MONO % 5.9 % (2.0-8.0); NEUTROPHILS # 5.1 10^3/uL (1.5-8.5); NEUTROPHILS % 71.2 % (36.0-66.0); PLATELET COUNT, AUTOMATED 275 10^3/uL (150-450); RED BLOOD COUNT 4.04 10^6/uL (4.00-5.40); WHITE BLOOD COUNT 7.1 10^3/uL (4.0-10.0)
[2023-04-14 17:47] LABS: ETHYL ALCOHOL (ETHANOL) < 0.003 % (0.000-0.010)
[2023-04-14 17:48] LABS: OSMOLALITY SERUM 293 MOSM/KG (275-295); SALICYLATE LEVEL < 3.0 MG/DL (<30)
[2023-04-14 17:49] LABS: ALKALINE PHOSPHATASE 58 U/L (46-116); ALT/SGPT 21 U/L (7.0-40); AST/SGOT 23 U/L (<34); BILIRUBIN,DIRECT 0.2 MG/DL (<0.4); BILIRUBIN,TOTAL 0.4 MG/DL (0.3-1.2); BLOOD UREA NITROGEN 17 MG/DL (9-23); CALCIUM LEVEL 9.2 MG/DL (8.5-10.1); CARBON DIOXIDE LEVEL 18 MMOL/L (20-31); CHLORIDE LEVEL 109 MMOL/L (98-107); CPK CREATINE PHOSPHOKINASE 132 U/L (34-145); CREATININE FOR GFR 0.62 MG/DL (0.55-1.30); GLOMERULAR FILTRATION RATE > 60.0 (>60); GLUCOSE, FASTING 127 MG/DL (60-100); POTASSIUM SERUM 3.8 MMOL/L (3.5-5.1); SODIUM LEVEL 139 MMOL/L (136-145)
[2023-04-14 17:51] LABS: THYROID STIMULATING HORMONE 4.704 uIU/ML (0.55-4.78)
[2023-04-14 17:54] LABS: HCG, SERUM QUALITATIVE NEGATIVE (NEGATIVE)
[2023-04-14] MEDS ORDERED: D5W IV ONE ×2 (18:15→23:30)
[2023-04-14] MEDS ORDERED: ACETYLCYSTEINE IV ONE ×2 (18:15→23:30)
[2023-04-14 18:30] LABS: RSV AMPLIFICATION NEGATIVE (NEGATIVE)
[2023-04-14] MEDS ORDERED: HOME MED LIST COMPLETE! XX SCH (18:45)
[2023-04-14] MEDS ORDERED: LORazepam 2 MG/ML 1ML VIAL IV STA (20:00)
[2023-04-14] MEDS ORDERED: ONDANSETRON 4MG 2ML VIAL IV PRN (20:00)
[2023-04-14] MEDS: D5W IV ONE ×2 (20:07→21:08)
[2023-04-14] MEDS: ACETYLCYSTEINE IV ONE ×2 (20:07→21:08)
[2023-04-14 20:17] LABS: AMPHETAMINES LEVEL URINE NEGATIVE (NEGATIVE); BARBITURATES URINE NEGATIVE (NEGATIVE); BENZODIAZEPINES URINE NEGATIVE (NEGATIVE); CANNABINOIDS URINE NEGATIVE (NEGATIVE); COCAINE METABOLITE URINE NEGATIVE (NEGATIVE); METHADONE URINE NEGATIVE (NEGATIVE); OPIATES URINE NEGATIVE (NEGATIVE); PHENCYCLIDINE URINE NEGATIVE (NEGATIVE)
[2023-04-14 20:50] LABS: INR 1.18; PROTHROMBIN TIME 14.6 SECONDS (12.5-14.5)
[2023-04-14 21:15] VITALS: BP 129/87; TEMP 97; O2SAT 98
[2023-04-14 21:16] LABS: ALBUMIN 3.5 G/DL (3.2-5.2); BILIRUBIN,DIRECT 0.2 MG/DL (<0.4); BILIRUBIN,TOTAL 0.5 MG/DL (0.3-1.2); TOTAL PROTEIN 6.6 G/DL (5.7-8.2)
[2023-04-14] MEDS: LR 1,000 ML IV SCH (21:42)
[2023-04-14 23:46] VITALS: BP 125/67; TEMP 97.2; O2SAT 95
[2023-04-15 03:13] LABS: ALBUMIN 2.9 G/DL (3.2-5.2); BILIRUBIN,DIRECT 0.2 MG/DL (<0.4); BILIRUBIN,TOTAL 0.6 MG/DL (0.3-1.2); TOTAL PROTEIN 5.6 G/DL (5.7-8.2)
[2023-04-15 03:50] VITALS: BP 105/55; TEMP 97; O2SAT 96
[2023-04-15 06:52] LABS: HEMATOCRIT 39.6 % (36.0-47.0); HEMOGLOBIN 13.5 g/dl (12.0-15.5); MEAN CORPUSCULAR HEMOGLOBIN 32.6 pg (27.0-33.0); MEAN CORPUSCULAR HGB CONC 34.1 g/dl (32.0-36.5); MEAN CORPUSCULAR VOLUME 95.7 fl (80.0-96.0); PLATELET COUNT, AUTOMATED 250 10^3/uL (150-450); RED BLOOD COUNT 4.14 10^6/uL (4.00-5.40); WHITE BLOOD COUNT 12.8 10^3/uL (4.0-10.0)
[2023-04-15 07:31] LABS: ALBUMIN 2.8 G/DL (3.2-5.2); ALKALINE PHOSPHATASE 40 U/L (46-116); ALT/SGPT 21 U/L (7.0-40); AST/SGOT 16 U/L (<34); BILIRUBIN,TOTAL 0.6 MG/DL (0.3-1.2); BLOOD UREA NITROGEN 10 MG/DL (9-23); CARBON DIOXIDE LEVEL 23 MMOL/L (20-31); CHLORIDE LEVEL 107 MMOL/L (98-107); CREATININE FOR GFR 0.59 MG/DL (0.55-1.30); GLOMERULAR FILTRATION RATE > 60.0 (>60); GLUCOSE, FASTING 128 MG/DL (60-100); POTASSIUM SERUM 3.3 MMOL/L (3.5-5.1); SODIUM LEVEL 138 MMOL/L (136-145); TOTAL PROTEIN 5.3 G/DL (5.7-8.2)
[2023-04-15] MEDS: NICOTINE 14 MG/24 HR TRANSDERMAL TD SCH (08:37)
[2023-04-15] MEDS ORDERED: ENOXAPARIN 40MG/0.4ML SYRINGE (J1650 PER 10MG) SC SCH (09:00)
[2023-04-15] MEDS: LR 1,000 ML IV SCH ×2 (09:13→12:13)
[2023-04-15 09:29] LABS: ATYPICAL LYMPH 3 % (0-5); EOSINOPHILS 1 % (0-3); LYMPHOCYTES 27 % (16-44); MONOCYTES 6 % (0-5); NEUTROPHILS 63 % (28-66)
[2023-04-15 09:30] LABS: PLATELET ESTIMATE NORMAL (NORMAL)
[2023-04-15] MEDS ORDERED: POTASSIUM CHLORIDE 10% LIQ 20MEQ/15ML UDC PO ONE (09:45)
[2023-04-15] MEDS: ENOXAPARIN 40MG/0.4ML SYRINGE (J1650 PER 10MG) SC SCH (12:25)
[2023-04-15 13:48] LABS: INR 1.23; PROTHROMBIN TIME 15.2 SECONDS (12.5-14.5)
[2023-04-15 13:55] LABS: ALBUMIN 3.2 G/DL (3.2-5.2); ALKALINE PHOSPHATASE 48 U/L (46-116); ALT/SGPT 21 U/L (7.0-40); AST/SGOT 22 U/L (<34); BILIRUBIN,DIRECT 0.1 MG/DL (<0.4); BILIRUBIN,TOTAL 0.4 MG/DL (0.3-1.2)
[2023-04-15 14:25] VITALS: BP 139/77; TEMP 97.3; O2SAT 97
[2023-04-15 20:00] VITALS: BP 126/66; TEMP 97.8; O2SAT 96
[2023-04-16] VITALS: BP 122/68; TEMP 98; O2SAT 97
[2023-04-16 04:00] VITALS: BP 118/70; TEMP 98.2; O2SAT 98
[2023-04-16 07:40] LABS: BASO % 0.6 % (0.0-1.0); EOS # 0.4 10^3/uL (0.0-0.5); EOS % 6.2 % (0.0-3.0); HEMATOCRIT 34.5 % (36.0-47.0); HEMOGLOBIN 11.6 g/dl (12.0-15.5); LYMPH # 2.9 10^3/uL (1.5-5.0); LYMPH % 41.2 % (24.0-44.0); MEAN CORPUSCULAR HGB CONC 33.6 g/dl (32.0-36.5); MONO # 0.6 10^3/uL (0.0-0.8); MONO % 8.8 % (2.0-8.0); NEUTROPHILS % 43.1 % (36.0-66.0); PLATELET COUNT, AUTOMATED 216 10^3/uL (150-450); RED BLOOD COUNT 3.52 10^6/uL (4.00-5.40); WHITE BLOOD COUNT 6.9 10^3/uL (4.0-10.0)
[2023-04-16 07:49] VITALS: BP 107/65; TEMP 97; O2SAT 100
[2023-04-16] MEDS: ENOXAPARIN 40MG/0.4ML SYRINGE (J1650 PER 10MG) SC SCH ×2 (09:00→09:23)
[2023-04-16] MEDS: NICOTINE 14 MG/24 HR TRANSDERMAL TD SCH (09:23)
[2023-04-16 10:17] LABS: ALBUMIN 2.9 G/DL (3.2-5.2); ALKALINE PHOSPHATASE 44 U/L (46-116); ALT/SGPT 26 U/L (7.0-40); AST/SGOT 26 U/L (<34); BILIRUBIN,TOTAL 0.2 MG/DL (0.3-1.2); BLOOD UREA NITROGEN 8 MG/DL (9-23); CALCIUM LEVEL 8.2 MG/DL (8.5-10.1); CARBON DIOXIDE LEVEL 26 MMOL/L (20-31); CHLORIDE LEVEL 111 MMOL/L (98-107); CREATININE FOR GFR 0.62 MG/DL (0.55-1.30); GLOMERULAR FILTRATION RATE > 60.0 (>60); GLUCOSE, FASTING 87 MG/DL (60-100); POTASSIUM SERUM 3.9 MMOL/L (3.5-5.1); SODIUM LEVEL 143 MMOL/L (136-145); TOTAL PROTEIN 5.3 G/DL (5.7-8.2)
[2023-04-16] MEDS: LR 1,000 ML IV SCH (12:14)
[2023-04-16 15:25] VITALS: BP 109/67; TEMP 97.7; O2SAT 100
== END 2023-04-16 15:30 | DRG 812 ==
LOC: M ED 16:30 → EDBD 16:30 → M ED INP 19:08 → ENRESERV 04-15 13:56 → M PCU 04-15 14:17
PROVIDERS: ADMIT Internal Medicine; ATTEND Internal Medicine
DX: T39.1X2A Poisoning by 4-Aminophenol derivatives, intentional self-harm, initial encounter (principal); E87.20 Acidosis, unspecified; R45.851 Suicidal ideations; F32.A Depression, unspecified; Z88.0 Allergy status to penicillin; Z88.8 Allergy status to other drugs, medicaments and biological substances; Z91.030 Bee allergy status

== ENCOUNTER 2023-04-16 12:17 | Inpatient (IN) | payer SELFPAY ==
[~2023-04-16] VITALS: Ht 152.4 cm; Wt 57.6 kg
[2023-04-16] MEDS ORDERED: IBUPROFEN 400MG TAB PO PRN (13:50)
[2023-04-16] MEDS ORDERED: MOM 30ML SUSPENSION UDC PO PRN (13:50)
[2023-04-16] MEDS ORDERED: ACETAMINOPHEN TAB 650MG DOSE (2X325MG) PO PRN (13:50)
[2023-04-16] MEDS ORDERED: MAALOX 30 ML SUSP *UDC PO PRN (13:50)
[2023-04-16] MEDS ORDERED: diphenhydrAMINE 25MG CAP PO PRN (13:50)
[2023-04-16] MEDS ORDERED: traZODone 50 MG TAB PO PRN (13:50)
[2023-04-16 16:01] VITALS: BP 107/67; TEMP 97.7; O2SAT 100
[2023-04-17] MEDS: buPROPion **XL** TABLET 150MG (WELLBUTRIN XL) PO SCH (12:30)
[2023-04-17 18:36] VITALS: BP 126/68; TEMP 98
[2023-04-17] MEDS: NICOTINE 21MG/24HR 1 EA TRANSDERMAL TD PRN (21:33)
[2023-04-18 05:55] VITALS: BP 103/53; TEMP 97.5; O2SAT 100
[2023-04-18] MEDS: buPROPion **XL** TABLET 150MG (WELLBUTRIN XL) PO SCH (08:03)
[2023-04-18 16:06] VITALS: BP 123/60; TEMP 98.3; O2SAT 100
[2023-04-18] MEDS: NICOTINE 21MG/24HR 1 EA TRANSDERMAL TD PRN (21:47)
[2023-04-19 06:36] VITALS: BP 110/56; TEMP 96.9; O2SAT 97
[2023-04-19] MEDS: buPROPion **XL** TABLET 150MG (WELLBUTRIN XL) PO SCH (08:23)
[2023-04-19 16:06] VITALS: BP 109/80; TEMP 98.2; O2SAT 99
[2023-04-19] MEDS: NICOTINE 21MG/24HR 1 EA TRANSDERMAL TD PRN (21:39)
[2023-04-20 06:32] VITALS: BP 100/51; TEMP 97; O2SAT 98
[2023-04-20 08:41] VITALS: BP 100/51; TEMP 97; O2SAT 98
[2023-04-20] MEDS: buPROPion **XL** TABLET 150MG (WELLBUTRIN XL) PO SCH (09:16)
[2023-04-20 16:05] VITALS: BP 135/69; TEMP 98; O2SAT 98
[2023-04-21 06:27] VITALS: BP 113/57; TEMP 98; O2SAT 100
[2023-04-21] MEDS: buPROPion **XL** TABLET 150MG (WELLBUTRIN XL) PO SCH (08:37)
[2023-04-21 18:35] VITALS: BP 118/73; TEMP 98.6; O2SAT 99
[2023-04-21] MEDS ORDERED: QUEtiapine FUMARATE 25 MG TAB PO SCH (21:00)
[2023-04-22 06:23] VITALS: BP 112/53; TEMP 97.8; O2SAT 100
[2023-04-22] MEDS: buPROPion **XL** TABLET 150MG (WELLBUTRIN XL) PO SCH (08:26)
[2023-04-22] MEDS ORDERED: QUET1TAB17 PO (10:07)
[2023-04-22] MEDS ORDERED: BUPR150T12 PO (10:07)
== END 2023-04-22 12:40 | disposition home or self-care (01) | DRG 753 ==
LOC: M PSY 16:00
PROVIDERS: ADMIT Student in an Organized Health Care Education/Training Program; ATTEND Psychiatry & Neurology Psychiatry
DX: F31.9 Bipolar disorder, unspecified (principal); F10.10 Alcohol abuse, uncomplicated; Z91.51 Personal history of suicidal behavior; Z88.0 Allergy status to penicillin; Z88.8 Allergy status to other drugs, medicaments and biological substances; Z91.013 Allergy to seafood; F17.210 Nicotine dependence, cigarettes, uncomplicated; Z81.1 Family history of alcohol abuse and dependence; Z81.8 Family history of other mental and behavioral disorders; F60.3 Borderline personality disorder; Z91.128 Patient's intentional underdosing of medication regimen for other reason; F41.9 Anxiety disorder, unspecified

== ENCOUNTER 2023-05-26 20:15 | Emergency (ER) | payer MEDICAID ==
[~2023-05-26] VITALS: Ht 154.9 cm; Wt 58.8 kg
[~2023-05-26 20:15] MED LIST changes: +BUPR150T12 PO; +QUET1TAB17 PO
[2023-05-26 21:55] LABS: RSV AMPLIFICATION NEGATIVE (NEGATIVE)
[2023-05-27] MEDS ORDERED: NS 1,000 ML IV ONE (06:30)
[2023-05-27] MEDS ORDERED: ONDANSETRON 4MG 2ML VIAL IV ONE (06:30)
[2023-05-27 08:40] VITALS: BP 108/60; TEMP 97.8; O2SAT 98
== END 2023-05-27 08:43 | disposition home or self-care (01) ==
LOC: M ED 20:15
DX: R11.2 Nausea with vomiting, unspecified (principal); R19.7 Diarrhea, unspecified; R05.9 Cough, unspecified; J45.909 Unspecified asthma, uncomplicated; R56.9 Unspecified convulsions; E03.9 Hypothyroidism, unspecified; F17.200 Nicotine dependence, unspecified, uncomplicated; Z87.440 Personal history of urinary (tract) infections; Z79.899 Other long term (current) drug therapy; Z88.0 Allergy status to penicillin; Z88.8 Allergy status to other drugs, medicaments and biological substances; Z91.013 Allergy to seafood
CPT/HCPCS: 80047; 84702; 87631; 96361; 96374; 99284; J2405

== ENCOUNTER → 2023-06-09 | Outpatient (CLI) | payer MEDICAID ==
[2023-06-09 15:50] LABS: HEPATITIS B SURFACE ANTIBODY NEGATIVE (POSITIVE)
[2023-06-09 15:53] LABS: BLOOD UREA NITROGEN 15 MG/DL (9-23); CALCIUM LEVEL 8.9 MG/DL (8.5-10.1); CARBON DIOXIDE LEVEL 28 MMOL/L (20-31); CHLORIDE LEVEL 107 MMOL/L (98-107); CREATININE FOR GFR 0.68 MG/DL (0.55-1.30); GLOMERULAR FILTRATION RATE > 60.0 (>60); GLUCOSE, FASTING 90 MG/DL (60-100); POTASSIUM SERUM 3.8 MMOL/L (3.5-5.1); SODIUM LEVEL 141 MMOL/L (136-145)
[2023-06-09 16:16] LABS: HIV 1&2 SCREEN NEGATIVE (NEGATIVE)
[2023-06-09 16:24] LABS: HEPATITIS C VIRUS ABY INDEX 0.02 INDEX (<0.8)
[2023-06-09 16:28] LABS: APPEARANCE, URINE TURBID (CLEAR); BACTERIA, URINE AUTO 3+ (NEGATIVE); BILIRUBIN, URINE AUTO NEGATIVE (NEGATIVE); BLOOD, URINE BLOOD 3+ (NEGATIVE); COLOR, URINE RED (YELLOW); GLUCOSE, URINE (UA) AUTO NEGATIVE (NEGATIVE); KETONE, URINE AUTO TRACE mg/dL (NEGATIVE); LEUKOCYTE ESTERASE, URINE AUTO NEGATIVE (NEGATIVE); MUCUS, URINE LARGE (NEGATIVE); NITRITE, URINE AUTO NEGATIVE (NEGATIVE); PROTEIN, URINE AUTO 2+ mg/dL (NEGATIVE); RBC, URINE AUTO 90 /HPF (0-3); SPECIFIC GRAVITY URINE AUTO 1.029 (1.002-1.035); SQUAMOUS EPITHELIAL CELL UR AU 3 /HPF (0-6); UROBILINOGEN, URINE AUTO 0.2 mg/dL (0.0-2.0); WBC, URINE AUTO 56 /HPF (0-3)
[2023-06-11 20:13] LABS: HEPATITIS A IgG TOTAL Positive (Negative); HEPATITIS B CORE ANTIBODY IGG Negative (Negative)
== END ==
LOC: M PLALAB 11:00
PROVIDERS: ATTEND Internal Medicine Infectious Disease
DX: Z20.6 Contact with and (suspected) exposure to human immunodeficiency virus [HIV] (principal); Z11.3 Encounter for screening for infections with a predominantly sexual mode of transmission

== ENCOUNTER 2023-07-04 19:26 | Emergency (ER) | payer MEDICAID, OTHER ==
[~2023-07-04] VITALS: Ht 154.9 cm; Wt 60.1 kg
[2023-07-04 20:29] LABS: BASO # 0.1 10^3/uL (0.0-0.2); BASO % 0.5 % (0.0-1.0); EOS # 0.6 10^3/uL (0.0-0.5); EOS % 4.3 % (0.0-3.0); HEMATOCRIT 42.3 % (36.0-47.0); HEMOGLOBIN 14.2 g/dl (12.0-15.5); LYMPH # 3.1 10^3/uL (1.5-5.0); LYMPH % 23.7 % (24.0-44.0); MEAN CORPUSCULAR HEMOGLOBIN 32.5 pg (27.0-33.0); MEAN CORPUSCULAR HGB CONC 33.6 g/dl (32.0-36.5); MEAN CORPUSCULAR VOLUME 96.8 fl (80.0-96.0); MONO # 0.9 10^3/uL (0.0-0.8); MONO % 6.9 % (2.0-8.0); NEUTROPHILS # 8.4 10^3/uL (1.5-8.5); NEUTROPHILS % 64.2 % (36.0-66.0); PLATELET COUNT, AUTOMATED 221 10^3/uL (150-450); RED BLOOD COUNT 4.37 10^6/uL (4.00-5.40); WHITE BLOOD COUNT 13.1 10^3/uL (4.0-10.0)
[2023-07-04 20:46] LABS: LIPASE 29 U/L (12-53)
[2023-07-04 20:48] LABS: ALBUMIN 4.1 G/DL (3.2-5.2); ALKALINE PHOSPHATASE 69 U/L (46-116); ALT/SGPT 14 U/L (7.0-40); AST/SGOT 14 U/L (<34); BILIRUBIN,DIRECT < 0.1 MG/DL (<0.4); BILIRUBIN,TOTAL 0.3 MG/DL (0.3-1.2); BLOOD UREA NITROGEN 16 MG/DL (9-23); CALCIUM LEVEL 9.2 MG/DL (8.5-10.1); CARBON DIOXIDE LEVEL 29 MMOL/L (20-31); CHLORIDE LEVEL 107 MMOL/L (98-107); CREATININE FOR GFR 0.74 MG/DL (0.55-1.30); GLOMERULAR FILTRATION RATE > 60.0 (>60); GLUCOSE, FASTING 90 MG/DL (60-100); SODIUM LEVEL 141 MMOL/L (136-145); TOTAL PROTEIN 7.2 G/DL (5.7-8.2)
[2023-07-04 21:22] LABS: HCG, SERUM QUALITATIVE NEGATIVE (NEGATIVE)
[2023-07-04 23:00] VITALS: BP 130/78; TEMP 97.8; O2SAT 100
[2023-07-05] MEDS: KETOROLAC 30 MG/ML 1ML VIAL IV ONE
[2023-07-05] MEDS: ONDANSETRON 4MG 2ML VIAL IV ONE
[2023-07-05] MEDS: NS 1,000 ML IV ONE
[2023-07-05] MEDS ORDERED: MIRA3350 PO (00:15)
== END 2023-07-05 00:28 | disposition home or self-care (01) ==
LOC: M ED 19:26
DX: K59.00 Constipation, unspecified (principal); N20.0 Calculus of kidney; Z88.0 Allergy status to penicillin; Z88.8 Allergy status to other drugs, medicaments and biological substances; Z91.013 Allergy to seafood; Z79.899 Other long term (current) drug therapy
CPT/HCPCS: 74176; 80048; 80076; 81001; 83690; 84703; 85025; 96374; 99284; J1885; J2405

== ENCOUNTER 2023-08-09 04:10 | Emergency (ER) | payer OTHER ==
[~2023-08-09] VITALS: Ht 152.4 cm; Wt 54.5 kg
[~2023-08-09 04:10] MED LIST changes: +MIRA3350 PO
[2023-08-09 04:52] LABS: HEMATOCRIT 45.3 % (36.0-47.0); HEMOGLOBIN 15.6 g/dl (12.0-15.5); MEAN CORPUSCULAR HEMOGLOBIN 33.2 pg (27.0-33.0); MEAN CORPUSCULAR HGB CONC 34.4 g/dl (32.0-36.5); MEAN CORPUSCULAR VOLUME 96.4 fl (80.0-96.0); PLATELET COUNT, AUTOMATED 280 10^3/uL (150-450); WHITE BLOOD COUNT 8.8 10^3/uL (4.0-10.0)
[2023-08-09] MEDS ORDERED: MED REC CURRENTLY UNOBTAINABLE XX SCH (04:55)
[2023-08-09 05:13] LABS: AMPHETAMINES LEVEL URINE NEGATIVE (NEGATIVE); BARBITURATES URINE NEGATIVE (NEGATIVE); BENZODIAZEPINES URINE NEGATIVE (NEGATIVE); CANNABINOIDS URINE NEGATIVE (NEGATIVE); COCAINE METABOLITE URINE NEGATIVE (NEGATIVE); METHADONE URINE NEGATIVE (NEGATIVE); OPIATES URINE NEGATIVE (NEGATIVE); PHENCYCLIDINE URINE NEGATIVE (NEGATIVE)
[2023-08-09 05:15] LABS: ETHYL ALCOHOL (ETHANOL) 0.225 % (0.000-0.010)
[2023-08-09 05:16] LABS: SALICYLATE LEVEL < 3.0 MG/DL (<30)
[2023-08-09 05:17] LABS: ALBUMIN 4.7 G/DL (3.2-5.2); ALKALINE PHOSPHATASE 68 U/L (46-116); ALT/SGPT 12 U/L (7.0-40); AST/SGOT 14 U/L (<34); BILIRUBIN,DIRECT < 0.1 MG/DL (<0.4); BILIRUBIN,TOTAL 0.2 MG/DL (0.3-1.2); BLOOD UREA NITROGEN 9 MG/DL (9-23); CALCIUM LEVEL 9.5 MG/DL (8.5-10.1); CARBON DIOXIDE LEVEL 20 MMOL/L (20-31); CHLORIDE LEVEL 113 MMOL/L (98-107); CREATININE FOR GFR 0.65 MG/DL (0.55-1.30); GLOMERULAR FILTRATION RATE > 60.0 (>60); GLUCOSE, FASTING 118 MG/DL (60-100); POTASSIUM SERUM 3.7 MMOL/L (3.5-5.1); SODIUM LEVEL 144 MMOL/L (136-145); TOTAL PROTEIN 8.3 G/DL (5.7-8.2)
[2023-08-09 05:18] LABS: THYROID STIMULATING HORMONE 13.862 uIU/ML (0.55-4.78)
[2023-08-09 05:25] LABS: HCG, SERUM QUALITATIVE NEGATIVE (NEGATIVE)
[2023-08-09 12:08] VITALS: BP 125/71; TEMP 97.4; O2SAT 98
== END 2023-08-09 12:52 | disposition home or self-care (01) ==
LOC: M ED 04:10
DX: F32.A Depression, unspecified (principal); F10.120 Alcohol abuse with intoxication, uncomplicated; Z88.0 Allergy status to penicillin; Z88.8 Allergy status to other drugs, medicaments and biological substances; Z91.013 Allergy to seafood

== ENCOUNTER 2023-09-27 19:03 | Inpatient (IN) | payer MEDICAID, OTHER ==
[~2023-09-27] VITALS: Ht 154.9 cm; Wt 57.3 kg
[~2023-09-27 19:03] MED LIST changes: +DOXY-323 PO; -DOXY-443 PO
[2023-09-27 20:03] LABS: HEMATOCRIT 39.9 % (36.0-47.0); HEMOGLOBIN 13.5 g/dl (12.0-15.5); MEAN CORPUSCULAR HEMOGLOBIN 32.6 pg (27.0-33.0); MEAN CORPUSCULAR HGB CONC 33.8 g/dl (32.0-36.5); MEAN CORPUSCULAR VOLUME 96.4 fl (80.0-96.0); PLATELET COUNT, AUTOMATED 258 10^3/uL (150-450); RED BLOOD COUNT 4.14 10^6/uL (4.00-5.40); WHITE BLOOD COUNT 8.7 10^3/uL (4.0-10.0)
[2023-09-27 20:26] LABS: AMPHETAMINES LEVEL URINE NEGATIVE (NEGATIVE); BARBITURATES URINE NEGATIVE (NEGATIVE); BENZODIAZEPINES URINE NEGATIVE (NEGATIVE); COCAINE METABOLITE URINE NEGATIVE (NEGATIVE); METHADONE URINE NEGATIVE (NEGATIVE); OPIATES URINE NEGATIVE (NEGATIVE); PHENCYCLIDINE URINE NEGATIVE (NEGATIVE)
[2023-09-27 20:28] LABS: ETHYL ALCOHOL (ETHANOL) 0.009 % (0.000-0.010)
[2023-09-27 20:29] LABS: CANNABINOIDS URINE POSITIVE (NEGATIVE)
[2023-09-27 20:30] LABS: ALBUMIN 3.9 G/DL (3.2-5.2); ALKALINE PHOSPHATASE 59 U/L (46-116); ALT/SGPT 12 U/L (7.0-40); AST/SGOT 12 U/L (<34); BILIRUBIN,DIRECT < 0.1 MG/DL (<0.4); BILIRUBIN,TOTAL 0.2 MG/DL (0.3-1.2); BLOOD UREA NITROGEN 13 MG/DL (9-23); CALCIUM LEVEL 9.1 MG/DL (8.5-10.1); CARBON DIOXIDE LEVEL 25 MMOL/L (20-31); CHLORIDE LEVEL 110 MMOL/L (98-107); CREATININE FOR GFR 0.62 MG/DL (0.55-1.30); GLOMERULAR FILTRATION RATE > 60.0 (>60); GLUCOSE, FASTING 80 MG/DL (60-100); POTASSIUM SERUM 3.8 MMOL/L (3.5-5.1); SALICYLATE LEVEL < 3.0 MG/DL (<30); SODIUM LEVEL 141 MMOL/L (136-145); TOTAL PROTEIN 7.1 G/DL (5.7-8.2)
[2023-09-27 20:32] LABS: THYROID STIMULATING HORMONE 15.243 uIU/ML (0.55-4.78)
[2023-09-27] MEDS ORDERED: SYMB80INH INH (20:35)
[2023-09-27] MEDS ORDERED: MULTTAB20 PO (20:35)
[2023-09-27] MEDS ORDERED: HOME MED LIST COMPLETE! XX SCH (20:35)
[2023-09-27 20:50] LABS: HCG, SERUM QUALITATIVE NEGATIVE (NEGATIVE)
[2023-09-28 00:42] LABS: FREE T4 1.09 NG/DL (0.89-1.76)
[2023-09-28] MEDS: PRENATAL VITAMINS CHEWABLE TABLET PO SCH (09:13)
[2023-09-29] MEDS ORDERED: IBUPROFEN 400MG TAB PO PRN (14:35)
[2023-09-29] MEDS ORDERED: ACETAMINOPHEN TAB 650MG DOSE (2X325MG) PO PRN (14:35)
[2023-09-29] MEDS ORDERED: MOM 30ML SUSPENSION UDC PO PRN (14:35)
[2023-09-29] MEDS ORDERED: MAALOX 30 ML SUSP *UDC PO PRN (14:35)
[2023-09-30] MEDS: traZODone 50 MG TAB PO PRN (00:17)
[2023-09-30] MEDS: diphenhydrAMINE 25MG CAP PO PRN (00:17)
[2023-09-30 06:09] VITALS: BP 105/63; TEMP 97.6; O2SAT 10
[2023-09-30] MEDS ORDERED: SYMBICORT 80/4.5MCG INHALER 6GM INH PRN (11:05)
[2023-09-30 18:28] VITALS: BP 117/65; TEMP 97.3
[2023-10-01 06:21] VITALS: BP 107/53; TEMP 97.9; O2SAT 97
[2023-10-01 07:06] LABS: CHOLESTEROL RISK RATIO 3.32 (<5); HDL CHOLESTEROL 50.8 MG/DL (>40); LDL CHOLESTEROL 102.4 MG/DL (<100); NON-HDL-C 118.2 MG/DL
[2023-10-01 18:32] VITALS: BP 139/69; TEMP 97.6
[2023-10-01] MEDS: ARIPiprazole 10 MG TAB PO SCH (20:15)
[2023-10-02 05:54] VITALS: BP 107/57; TEMP 97.9; O2SAT 98
[2023-10-02] MEDS: ARIPiprazole MONOHYDRATE 400 MG INJ (ABILIFY)(FREE PSY INPT ONLY) IM ONE (11:23)
[2023-10-02] MEDS: NICOTINE POLACRILEX 2 MG GUM PO PRN (11:48)
[2023-10-02 18:44] VITALS: BP 121/83; TEMP 98.3; O2SAT 96
[2023-10-03] MEDS: LEVOTHYROXINE 50MCG TABLET (0.05MG) PO SCH (05:45)
[2023-10-03 06:30] VITALS: BP 115/58; TEMP 98.3; O2SAT 94
[2023-10-03] MEDS ORDERED: LEVO50TA5 PO (08:40)
[2023-10-03] MEDS ORDERED: NICO2GUM PO (08:40)
[2023-10-03] MEDS ORDERED: TRAZ-252 PO (08:40)
[2023-10-03] MEDS ORDERED: ABIL1INJ2 IM (08:40)
[2023-10-03] MEDS ORDERED: ABIL1TAB11 PO (08:40)
== END 2023-10-03 10:20 | disposition home or self-care (01) | DRG 753 ==
LOC: M ED 19:03 → M ED INP 09-29 14:35 → M PSY 09-29 16:29
PROVIDERS: ADMIT Student in an Organized Health Care Education/Training Program; ATTEND Student in an Organized Health Care Education/Training Program
DX: F31.9 Bipolar disorder, unspecified (principal); R45.851 Suicidal ideations; F60.3 Borderline personality disorder; F12.159 Cannabis abuse with psychotic disorder, unspecified; F17.210 Nicotine dependence, cigarettes, uncomplicated; Z91.51 Personal history of suicidal behavior; Z88.0 Allergy status to penicillin; Z88.8 Allergy status to other drugs, medicaments and biological substances; Z91.013 Allergy to seafood; Z81.1 Family history of alcohol abuse and dependence; Z81.8 Family history of other mental and behavioral disorders; J45.909 Unspecified asthma, uncomplicated; E06.3 Autoimmune thyroiditis; E02 Subclinical iodine-deficiency hypothyroidism

== ENCOUNTER → 2023-10-27 | Outpatient (REF) | payer MEDICAID ==
[~2023-10-27] MED LIST changes: +ABIL1INJ2 IM; +ABIL1TAB11 PO; +MULTTAB20 PO; +NICO2GUM PO; +ONDA-282 PO; -ONDA4TAB6 PO; +SYMB80INH INH; +TRAZ-252 PO
[2023-10-28 15:08] LABS: HEMOGLOBIN 14.5 g/dl (12.0-15.5); MEAN CORPUSCULAR VOLUME 97.5 fl (80.0-96.0); RED BLOOD COUNT 4.41 10^6/uL (4.00-5.40); WHITE BLOOD COUNT 7.7 10^3/uL (4.0-10.0)
[2023-10-28 15:09] LABS: BASO % 0.9 % (0.0-1.0); LYMPH % 31.6 % (24.0-44.0); MEAN CORPUSCULAR HEMOGLOBIN 32.9 pg (27.0-33.0); MEAN CORPUSCULAR HGB CONC 33.7 g/dl (32.0-36.5); MONO % 9.1 % (2.0-8.0); PLATELET COUNT, AUTOMATED 292 10^3/uL (150-450)
[2023-10-28 15:10] LABS: BASO # 0.1 10^3/uL (0.0-0.2); EOS # 0.5 10^3/uL (0.0-0.5); LYMPH # 2.4 10^3/uL (1.5-5.0); MONO # 0.7 10^3/uL (0.0-0.8); NEUTROPHILS # 3.9 10^3/uL (1.5-8.5)
[2023-10-28 15:19] LABS: ALBUMIN 4.1 G/DL (3.2-5.2); ALKALINE PHOSPHATASE 58 U/L (46-116); ALT/SGPT 17 U/L (7.0-40); AST/SGOT 18 U/L (<34); BILIRUBIN,DIRECT 0.1 MG/DL (<0.4); BILIRUBIN,TOTAL 0.4 MG/DL (0.3-1.2); BLOOD UREA NITROGEN 16 MG/DL (9-23); CALCIUM LEVEL 9.2 MG/DL (8.5-10.1); CARBON DIOXIDE LEVEL 26 MMOL/L (20-31); CHLORIDE LEVEL 107 MMOL/L (98-107); CHOLESTEROL LEVEL 191 MG/DL (<200); CHOLESTEROL RISK RATIO 2.99 (<5); CREATININE FOR GFR 0.71 MG/DL (0.55-1.30); GLOMERULAR FILTRATION RATE > 60.0 (>60); GLUCOSE, FASTING 102 MG/DL (60-100); HDL CHOLESTEROL 63.7 MG/DL (>40); LDL CHOLESTEROL 110.7 MG/DL (<100); NON-HDL-C 127.3 MG/DL; SODIUM LEVEL 138 MMOL/L (136-145); TOTAL PROTEIN 7.2 G/DL (5.7-8.2); TRIGLYCERIDES LEVEL 83 MG/DL (<150)
[2023-10-28 15:21] LABS: THYROID STIMULATING HORMONE 3.013 uIU/ML (0.55-4.78)
[2023-10-28 15:34] LABS: HEMOGLOBIN A1c 4.8 % (4.0-6.0)
== END ==
LOC: M LAB REF 10:40
PROVIDERS: ATTEND Nurse Practitioner Family
DX: E66.3 Overweight (principal); R53.83 Other fatigue; F10.90 Alcohol use, unspecified, uncomplicated; Z11.9 Encounter for screening for infectious and parasitic diseases, unspecified

== ENCOUNTER 2023-11-08 23:44 | Emergency (ER) | payer MEDICAID, OTHER ==
[~2023-11-08] VITALS: Ht 154.9 cm; Wt 61.8 kg
[2023-11-09 01:54] VITALS: BP 132/71; TEMP 97.7; O2SAT 100
== END 2023-11-09 03:21 | disposition left against medical advice (07) ==
LOC: M ED 23:44
DX: Z53.21 Procedure and treatment not carried out due to patient leaving prior to being seen by health care provider (principal)

== ENCOUNTER 2024-01-07 10:23 | Emergency (ER) | payer OTHER, SELFPAY ==
[~2024-01-07] VITALS: Ht 154.9 cm; Wt 63.0 kg
[2024-01-07] MEDS: KETOROLAC 30 MG/ML 1ML VIAL IV ONE (12:51)
[2024-01-07 13:26] LABS: HCG, SERUM QUALITATIVE NEGATIVE (NEGATIVE)
[2024-01-07 13:29] VITALS: BP 106/68; TEMP 97.3; O2SAT 100
== END 2024-01-07 14:34 | disposition home or self-care (01) ==
LOC: M ED 10:23
DX: R51.9 Headache, unspecified (principal); H54.3 Unqualified visual loss, both eyes; F17.200 Nicotine dependence, unspecified, uncomplicated; Z88.0 Allergy status to penicillin; Z88.8 Allergy status to other drugs, medicaments and biological substances; Z91.013 Allergy to seafood
CPT/HCPCS: 84703; 96374; 99284; J1885

== ENCOUNTER 2024-02-16 11:48 | Emergency (ER) | payer OTHER, SELFPAY ==
[~2024-02-16] VITALS: Ht 154.9 cm; Wt 63.6 kg
[~2024-02-16 11:48] MED LIST changes: -DOXY-323 PO; +DOXY-441 PO
[2024-02-16 12:33] LABS: HEMATOCRIT 42.4 % (36.0-47.0); HEMOGLOBIN 14.3 g/dl (12.0-15.5); MEAN CORPUSCULAR HEMOGLOBIN 33.8 pg (27.0-33.0); MEAN CORPUSCULAR HGB CONC 33.7 g/dl (32.0-36.5); MEAN CORPUSCULAR VOLUME 100.2 fl (80.0-96.0); PLATELET COUNT, AUTOMATED 231 10^3/uL (150-450); RED BLOOD COUNT 4.23 10^6/uL (4.00-5.40)
[2024-02-16 12:58] LABS: AMPHETAMINES LEVEL URINE NEGATIVE (NEGATIVE); BARBITURATES URINE NEGATIVE (NEGATIVE)
[2024-02-16 12:59] LABS: BENZODIAZEPINES URINE NEGATIVE (NEGATIVE); CANNABINOIDS URINE NEGATIVE (NEGATIVE); COCAINE METABOLITE URINE NEGATIVE (NEGATIVE); METHADONE URINE NEGATIVE (NEGATIVE); OPIATES URINE NEGATIVE (NEGATIVE); PHENCYCLIDINE URINE NEGATIVE (NEGATIVE)
[2024-02-16 13:02] LABS: ETHYL ALCOHOL (ETHANOL) 0.201 % (0.000-0.010)
[2024-02-16 13:04] LABS: ALBUMIN 4.2 G/DL (3.2-5.2); ALKALINE PHOSPHATASE 55 U/L (46-116); ALT/SGPT 10 U/L (7.0-40); AST/SGOT 12 U/L (<34); BILIRUBIN,DIRECT 0.1 MG/DL (<0.4); BILIRUBIN,TOTAL 0.3 MG/DL (0.3-1.2); BLOOD UREA NITROGEN 12 MG/DL (9-23); CALCIUM LEVEL 9.1 MG/DL (8.5-10.1); CARBON DIOXIDE LEVEL 26 MMOL/L (20-31); CHLORIDE LEVEL 113 MMOL/L (98-107); CREATININE FOR GFR 0.66 MG/DL (0.55-1.30); GLOMERULAR FILTRATION RATE > 60.0 (>60); GLUCOSE, FASTING 88 MG/DL (60-100); POTASSIUM SERUM 3.6 MMOL/L (3.5-5.1); SALICYLATE LEVEL < 3.0 MG/DL (<30); SODIUM LEVEL 147 MMOL/L (136-145); THYROID STIMULATING HORMONE 4.011 uIU/ML (0.55-4.78); TOTAL PROTEIN 7.5 G/DL (5.7-8.2)
[2024-02-16 14:15] LABS: HCG, SERUM QUALITATIVE NEGATIVE (NEGATIVE)
[2024-02-16 18:23] VITALS: BP 122/70; TEMP 97.7; O2SAT 96
== END 2024-02-16 18:42 | disposition home or self-care (01) ==
LOC: M ED 11:48
DX: F10.129 Alcohol abuse with intoxication, unspecified (principal); F94.1 Reactive attachment disorder of childhood; F39 Unspecified mood [affective] disorder; F17.200 Nicotine dependence, unspecified, uncomplicated; Z88.0 Allergy status to penicillin; Z88.9 Allergy status to unspecified drugs, medicaments and biological substances; Z91.013 Allergy to seafood

== ENCOUNTER → 2024-04-27 | Outpatient (CLI) | payer OTHER ==
[~2024-04-27] MED LIST changes: -GEOD40CA13 PO; +ZIPR40CA27 PO
== END ==
LOC: M CARPUL 09:05
PROVIDERS: ATTEND Nurse Practitioner Family
DX: R01.1 Cardiac murmur, unspecified (principal)

== ENCOUNTER → 2024-05-07 | Outpatient (CLI) | payer OTHER | LOC: M LAB 13:08 | PROVIDERS: ATTEND Nurse Practitioner Family | DX: N97.9 Female infertility, unspecified (principal) ==

== ENCOUNTER → 2024-05-18 | Outpatient (CLI) | payer OTHER ==
[2024-05-18 15:33] LABS: GLUCOSE, FASTING 105 MG/DL (60-100)
[2024-05-18 15:39] LABS: FOLLICLE STIMULATING HORMONE 7.6 mIU/ML
[2024-05-18 15:40] LABS: LUTEINIZING HORMONE 3.5 mIU/ML; PROLACTIN 7.68 NG/ML; THYROID STIMULATING HORMONE 4.448 uIU/ML (0.55-4.78)
[2024-05-18 15:42] LABS: HCG, SERUM QUALITATIVE NEGATIVE (NEGATIVE)
[2024-05-19 11:27] LABS: INSULIN TOTAL2 4.7 uIU/mL (<=18.4)
== END ==
LOC: M LAB 14:12
PROVIDERS: ATTEND Obstetrics & Gynecology Obstetrics
DX: N97.9 Female infertility, unspecified (principal)

== ENCOUNTER → 2024-06-21 | Outpatient (CLI) | payer OTHER | LOC: M RAD 14:09 | PROVIDERS: ATTEND Obstetrics & Gynecology Obstetrics | DX: N97.9 Female infertility, unspecified (principal) ==

== ENCOUNTER → 2024-08-06 | Outpatient (CLI) | payer OTHER | LOC: M LAB 11:40 | PROVIDERS: ATTEND Obstetrics & Gynecology Obstetrics | DX: N97.9 Female infertility, unspecified (principal) ==

== ENCOUNTER 2025-01-08 04:00 | Emergency (ER) | payer OTHER ==
[~2025-01-08] VITALS: Ht 154.9 cm; Wt 68.0 kg
[~2025-01-08 04:00] MED LIST changes: +BUPR-670 PO; -BUPR1TAB52 PO
[2025-01-08 05:02] LABS: PLATELET COUNT, AUTOMATED 237 10^3/uL (150-450)
[2025-01-08 05:28] LABS: AMPHETAMINES LEVEL URINE NEGATIVE (NEGATIVE); BARBITURATES URINE NEGATIVE (NEGATIVE); BENZODIAZEPINES URINE NEGATIVE (NEGATIVE); COCAINE METABOLITE URINE NEGATIVE (NEGATIVE); METHADONE URINE NEGATIVE (NEGATIVE); OPIATES URINE NEGATIVE (NEGATIVE); PHENCYCLIDINE URINE NEGATIVE (NEGATIVE)
[2025-01-08 05:29] LABS: CANNABINOIDS URINE POSITIVE (NEGATIVE)
[2025-01-08 05:34] LABS: ETHYL ALCOHOL (ETHANOL) 0.252 % (0.000-0.010)
[2025-01-08 05:35] LABS: ALT/SGPT 11 U/L (7.0-40); AST/SGOT 20 U/L (<34); CALCIUM LEVEL 9.2 MG/DL (8.5-10.1); CARBON DIOXIDE LEVEL 20 MMOL/L (20-31); CHLORIDE LEVEL 113 MMOL/L (98-107); CREATININE FOR GFR 0.72 MG/DL (0.55-1.30); GLOMERULAR FILTRATION RATE > 90.0 (>60); POTASSIUM SERUM 3.6 MMOL/L (3.5-5.1); SALICYLATE LEVEL < 3.0 MG/DL (<30); SODIUM LEVEL 147 MMOL/L (136-145)
[2025-01-08 13:27] VITALS: BP 107/65; TEMP 96.1; O2SAT 98
== END 2025-01-08 13:28 | disposition home or self-care (01) ==
LOC: M ED 04:00
DX: F10.129 Alcohol abuse with intoxication, unspecified (principal); F43.21 Adjustment disorder with depressed mood; R56.9 Unspecified convulsions; Z87.440 Personal history of urinary (tract) infections; F17.200 Nicotine dependence, unspecified, uncomplicated; Z88.0 Allergy status to penicillin; Z88.8 Allergy status to other drugs, medicaments and biological substances; Z91.013 Allergy to seafood